=== PATIENT | male | born 1960 | race Caucasian/White ===

== ENCOUNTER 2021-02-09 17:18 | Observation (INO) | payer OTHER, SELFPAY ==
--- NOTE | ~2021-02-09 | XR_ITS ---
EXAMINATION: XR abdomen/kub 1V EXAM DATE: 02/11/2021 08:38 INDICATION: Right kidney stone position. TECHNIQUE: Frontal projection(s) of the abdomen for interpretation. Correlation is made to CT abdomen pelvis 02/09/2021. FINDINGS: There is a right-sided double-J ureteral stent. There is large stone at the right UPJ, jus t above the L4 transverse process level. This finding has been indicated, marked on the examination f or review, clinical correlation. Smaller bilateral nephrolithiasis. Small amount of bowel gas. There is no organomegaly. There are mild bony degenerative changes. IMPRESSION: Right UPJ stone, bilateral nephrolithiasis identified Reviewed, dictated and finalized at location A.
--- NOTE | ~2021-02-09 | XR_ITS ---
EXAMINATION: XR retrograde pyelo w/stent RT EXAM DATE: 02/10/2021 13:08 INDICATION: Right-sided retrograde, stent placement. Obstructive nephropathy. TECHNIQUE: Fluoroscopy used during XR retrograde pyelo w/stent RT performed by Dr. Romulo Lewis MD. Total fluoroscopic time of 24 seconds. A total of 62 obtained for the exam. The DAP for this procedure was 940 radcm2. Cine run(s) available for review. FINDINGS: Right ureter was cannulated, injected. There is mild to moderate hydronephrosis. A double- J ureteral stent was placed. Correlate with procedure note. IMPRESSION: Mild to moderate right hydronephrosis. Stent in position. Reviewed, dictated and finalized at location A.
--- NOTE | ~2021-02-09 | XR_ITS ---
XR chest 1V portable 02/11/2021 08:38 Indication: Groundglass opacities on CT examination. Procedure: AP portable chest Comparison: CT dated 02/09/2021 Findings: There are patchy left mid and lower lung zone infiltrates, compatible with pneumonia. No si gnificant effusion. Heart size normal. No pneumothorax. No acute osseous abnormality. Impression: 1: Patchy left-sided infiltrates, consistent with pneumonia. Reviewed, dictated and finalized at location B. Impression: 1: Patchy left-sided infiltrates, consistent with pneumonia.
--- NOTE | ~2021-02-09 | CT_ITS ---
EXAMINATION: CT abdomen pelvis w con EXAM DATE: 02/09/2021 19:16 INDICATION: Abdominal pain, nausea, and diarrhea. Rule out small bowel obstruction. TECHNIQUE: Spiral CT of the abdomen and pelvis was performed following intravenous injection of 100 m L Omnipaque 350. Axial, coronal and sagittal images were reviewed. The dose-length product (DLP) fo r this examination was 1446.06 mGy-cm. The exposure was tailored according to patient size (auto mA exposure control), and iterative reconstruction (ASIR) was used as additional dose reduction techniqu e. There is no prior study for comparison. FINDINGS: Evaluation of the lung bases demonstrates at least 5 small regions of peripheral groundglas s opacity, nonspecific pneumonitis but possible COVID pneumonia. There are 2 right basilar 4 mm nodul es, several punctate smaller left basilar nodules, likely postinfectious. There is a 1 cm stone in the right ureteropelvic junction with mild hydronephrosis, and a delayed nep hrogram. There is ill-defined 2 cm right kidney superior pole hypodensity, which could be hemorrhagic cyst could also be mass or pyelonephritis. Several other nonobstructing bilateral calyceal stones. The liver, spleen, adrenal glands and pancreas are unremarkable. Gallbladder is unremarkable. No bi liary obstruction. The prostate is unremarkable. The bladder is unremarkable. There is no retroper itoneal or pelvic lymphadenopathy. Small umbilical fat-containing hernia. The appendix is normal. The stomach and small bowel are unremarkable. There is expected amount of c olonic stool. No free intraperitoneal gas. The heart is normal in size. There are no pericardial or pleural effusions. There are no osteoblastic or osteolytic lesions identified. IMPRESSION: 1. Possible early or mild COVID pneumonia. 2. Right ureteropelvic junction 10 mm stone, mild hydronephrosis. Delayed nephrogram. 3. Right renal 2 cm hypodensity, indeterminate for cancer or infection. Recommend correlation with u rinalysis and one-month follow-up CT or MRI without and with contrast for further evaluation. 4. Bilateral nephrolithiasis. Urologist consultants would appreciate KUB as baseline for follow-up, treatment planning. Reviewed, dictated and finalized at location A. IMPRESSION: 1. Possible early or mild COVID pneumonia. 2. Right ureteropelvic junction 10 mm stone, mild hydronephrosis. Delayed neph rogram. 3. Right renal 2 cm hypodensity, indeterminate for cancer or infection. Recomm end correlation with urinalysis and one-month follow-up CT or MRI without and w ith contrast for further evaluation. 4. Bilateral nephrolithiasis. Urologist consultants would appreciate KUB as baseline for follow-up, treatment planning.
[2021-02-09 17:25] VITALS: BP 159/96; PULSE 97; RESP 22; TEMP 36.1; O2SAT 97
[2021-02-09 18:02] LABS: Basophils Percent Auto 0.4 % (0.2-1.2); Eosinophils Percent Auto 0.1 % (0-4.4); Hematocrit 43.5 % (42.0-52.0); Hemoglobin 15.3 g/dL (14.0-18.0); Immature Granulocyte Absolute 0.05 K/mm3 (0.00-0.031); Immature Granulocyte Percent A 0.5 % (0-0.5); Lymphocytes Absolute Auto 1.36 K/mm3 (0.9-3.2); Lymphocytes Percent Auto 13.7 % (18.3-44.2); Mean Corpuscular HGB Conc 35.2 g/dl (32-36); Mean Corpuscular Hemoglobin 29.4 pg (26-34); Mean Corpuscular Volume 83.7 fl (80-100); Mean Platelet Volume 8.9 fl (7.4-10.4); Monocytes Absolute Auto 1.7 K/mm3 (0.1-0.6); Monocytes Percent Auto 16.6 % (2.6-8.5); Neutrophils Absolute Auto 6.9 K/mm3 (1.3-6.7); Neutrophils Percent Auto 68.7 % (45.5-73.1); Platelet Count Result 228 k/mm3 (150-375); Red Cell Distribution Width 11.7 % (11.5-14.5)
[2021-02-09 18:08] LABS: Add Urine Microscopic? YES; Amorphous Sediment Urine Few; Appearance Urine Cloudy (Clear); Bacteria Urine 1+ /hpf; Bilirubin Urine Negative (Negative); Blood Urine 1+ (Negative); Color Urine Yellow (Yellow); Glucose Urine UA Negative (Negative); Ketones Urine Negative (Negative); Leukocyte Esterase Ur 3+ LEU/UL (Negative); Nitrate Urine Negative (Negative); Protein Urine 1+ mg/dL (Negative); Specific Grav Ur 1.009 (1.001-1.035); Squamous Epithelial Cell Urine Rare /hpf (Few); WBC Urine >75 /hpf
[2021-02-09 18:12] LABS: Alanine Aminotransferase 24 U/L (4-50); Albumin Level 3.8 g/dL (3.5-5.1); Alkaline Phosphatase 65 U/L (38-126); Anion Gap 6 mmol/L (8-16); Aspartate Amino Transferase 31 U/L (17-59); Bilirubin,Total 1.7 mg/dL (0.2-1.3); Blood Urea Nitrogen 11 mg/dL (9-20); Calcium 8.3 mg/dL (8.4-10.2); Carbon Dioxide 29 mmol/L (22-30); Chloride 99 mmol/L (98-107); Estimated CRCL calculation 84 ml/min; Estimated Glomerular Filt Rate > 60; Glucose 139 mg/dL (75-110); Lipase 47 U/L (23-300); Potassium 3.4 mmol/L (3.4-5.0); Sodium 134 mmol/L (137-145)
--- NOTE | 2021-02-09 18:38 | ED.GENADULT ---
HPI - General Adult General Chief complaint: Abdominal Pain Stated complaint: abd pain Time Seen by Provider: 02/09/21 17:39 Source: patient Mode of arrival: ambulatory Limitations: no limitations History of Present Illness HPI narrative: Patient presents for evaluation of abdominal pain for last 3 days. He states the pain is in the bilateral lower quadrants, described as a pressure, currently rated 8 out of 10 in severity. Pain is fairly constant. He has associated nausea without vomiting. He has also experienced diarrhea, with four reported episodes today. No blood or mucous in the stool. No hx of abdominal surgeries. States he had a colonoscopy a few years ago that he believes was normal. He seldom consumes ETOH. Denies tobacco use and illicit drug use. He has not experienced any fever or chills. Related Data Allergies Allergy/AdvReac Type Severity Reaction Status Date / Time No Known Allergies Allergy Verified 02/09/21 17:26 Review of Systems Review of Systems: Narrative: CONSTITUTIONAL: Denies fever, chills, or sweats. EYES: Denies visual changes, redness, or discharge. ENT: Denies rhinorrhea, congestion, sore throat, or otalgia. CARDIOVASCULAR: Denies chest pain, palpitations, or edema. RESPIRATORY: Denies cough or dyspnea. GASTROINTESTINAL: Abdominal pain, nausea and diarrhea. Denies vomiting GENITOURINARY: Denies dysuria or hematuria. SKIN: Denies rash or itching. MUSCULOSKELETAL: Denies back pain, joint pain, or myalgia. NEUROLOGIC: Denies headache, numbness, dizziness, or weakness. PSYCHIATRIC: Denies anxiety or depression. [facility] Past Medical History Medical History (Updated 02/09/21 @ 20:54 by EARNESTINE Dorado, ) Hyperlipidemia Hypertension Surgical History Surgical History No pertinent past surgical history Family History Family History Mother Diabetes mellitus Father Diabetes mellitus Social History Social History Smoking status: Never smoker Alcohol intake: current Alcohol use details: seldom Substance use: never Living arrangements: alone Gender identity (if verbalized by the patient): Male Spiritual care concerns: No Exam Narrative: Exam Narrative: GENERAL: Well-appearing, well-nourished, and in no acute distress. HEAD: Normocephalic, atraumatic. EYES: PERRLA and EOMI. ENT: Nares clear, no rhinorrhea or epistaxis. Mucous membranes moist. Oropharynx without tonsillar hypertrophy exudate or other lesions. Bilateral TMs pearly cruz nonbulging NECK: Supple. No adenopathy or masses. No carotid bruits or JVD CHEST: Clear to auscultation. No respiratory distress. No wheezes rales or rhonchi HEART: Regular rate and rhythm. No murmur heard. Normal peripheral pulses. ABDOMEN: Soft, protuberant, with tenderness in BLQ without rebound or guarding EXTREMITIES: Normal range of motion. No edema. SKIN: Warm, dry, no rash. NEURO: No focal deficits. Alert and oriented x3. PSYCH: Normal mood and affect. Course Course Emergency Course: This is a 60-year-old male that presented with 3-day history of abdominal pain, nausea, and diarrhea. Initial consideration was for small bowel obstruction. However CT abdomen pelvis consistent with pneumonia questionably related to Covid, 10 mm stone in right UVJ, nephrolithiasis, right renal 2 cm hypodensity, and bilateral nephrolithiasis. He was given morphine and zofran in the ER 2039 I reviewed all diagnostics with pt, including recommendations for admission. He is agreeable to plan of care. 2049 I discussed all relevant case with urologist, Dr. Lewis, who agreed to consult on case. Recommends admitting to hospitalist service. 2109 I discussed all relevant facts of case with Dr Garcia, who agrees to admit pt to her service. Pt started on Rocephin in ER.
[2021-02-09] MEDS: ONDANSETRON INJ 4 MG/2 ML VIAL IV PUSH (19:34)
[2021-02-09] MEDS: MORPHINE SULFATE (*CRX) 2 MG/ML INJ IV PUSH (19:35)
--- NOTE | 2021-02-09 19:35 | PC.NURSE ---
Assumed care of pt. report from GIOVANNI Valencia
[2021-02-09 19:54] VITALS: BP 119/96; PULSE 82; RESP 19; O2SAT 94
[2021-02-09 21:00] VITALS: BP 126/80; PULSE 85; RESP 19; O2SAT 96
[2021-02-09] MEDS: SODIUM CHLORIDE 0.9% IV 1,000 ML 150 ML IV CONT (21:15)
[2021-02-09] MEDS: POTASSIUM CHLORIDE 20 MEQ TABLET PO (21:30)
[2021-02-09 21:53] VITALS: BP 133/87; PULSE 78; RESP 19; O2SAT 99
[2021-02-09 22:00] VITALS: BP 107/90; PULSE 87; RESP 18; TEMP 37.3; O2SAT 97; BMI 39.8
--- NOTE | 2021-02-09 22:01 | ADMGEN ---
This patient, Chilo Mcintyre, was admitted to 3 [facility] Surg Room 322-01. Patient/family oriented to hospital policies and general routines including ID bracelet, bed and alarms, visiting hours, pain management, procedures, bathroom and other care routines, personal items, smoking policy, room service/diet, and visiting hours. Information on how to activate the Rapid Response Team has been discussed. Patient/Family are encouraged to report perceived risks to care and to ask questions if they do not understand what they are told or what they should do.
--- NOTE | 2021-02-09 23:57 | PM.IMHP ---
H&P: HPI History of Present Illness Date/Time: 02/09/21 23:57 Chief Complaint: Abdominal pain, nausea and diarrhea Narrative: 60-year-old male with a past medical history of kidney stones, hypertension and hyperlipidemia who presented to the ER for evaluation of nausea, diarrhea and abdominal pain for 3 days. He reports that about 5 days ago he began having some right flank pain. After a day or so the pain went away. He then began having more lower abdominal pain that was generalized. It was accompanied by up to 6 loose stools a day. His stools were brown in color. He denies any hematochezia or melena. He reported feeling severely nauseous but not having any vomiting. He had not been able to eat for the last 3 days due to his severe nausea. After he received medications in the ER his symptoms had improved and he was able to eat a sandwich when he arrived to the medical floor. Reports that he is a ?hot blooded person? but has not noticed any real fevers. He has not measured his temperature. He denies any chest pain. But over the last 2 days he has noticed a mild cough with some associated shortness of breath. He works at a [email or web address] and has exposure to the public. He denies any known COVID exposures. He denies any dysuria or hematuria. He states he does not pay attention to whether not his urine has changed in color or if is urine has been foul smelling. He reports that his last kidney stone was approximately 3 years ago. The 2 times that he has had kidney stones in the past he has required cystoscopy with ureteral stent placement. A cystoscopy his blood pressures dropped. I suspect that this was likely due to and infected kidney stone at that time. He does admit to drinking a lot of Dr. Shilpa. He does have a history of hypertension but it looks like he has not had his antihypertensives refilled since February of 2020. He denies any headache, fatigue, or myalgias. He has multiple missing teeth in remainder of his teeth are in poor condition. He denies any current dental pain. Review of Systems Review of Systems: Narrative: 12 systems were reviewed with pertinent positives and negatives per HPI. Except as documented in the HPI, all other systems were reviewed and are negative. [facility] Past Medical History Medical History (Updated 02/10/21 @ 00:38 by Geena Garcia DO) Bilateral kidney stones Hyperlipidemia Hypertension Surgical History Surgical History (Updated 02/10/21 @ 00:38 by Geena Garcia DO) History of bilateral inguinal hernia repair S/P cystoscopy with ureteral stent placement (~2018) X2 Status post open reduction with internal fixation of fracture (~2018) Left tib-fib fracture Family History Family History Mother , Around age 75 Diabetes mellitus Thyroid disease Father , Around age 75 Diabetes mellitus COPD (chronic obstructive pulmonary disease) Social History Social History (Updated 02/10/21 @ 00:46 by Geena Garcia DO) Social History: The patient and his her currently . He still goes over to their house and watches his 15-year-old daughter. He also has 2 other biologic children ages 40 and 32. He also has a stepson who was 24. He is employed at [employer]. He has had intermittent tobacco use since he was a teenager. He reports that he has never smoked more than a half a pack of cigarettes a day. He states that he is currently quit smoking but is vague as to when he last smoked. He drinks 3-4 alcoholic beverages a week. Smoking status: Former smoker Alcohol intake: current Drinks per week: 2 Alcohol use details: He drinks 3-4 alcoholic beverages a week but will go intervals without drinking for a month or so. Substance use: never Living arrangements: alone Gender identity (if verbalized by the patient): Male Spiritual care concerns: No Meds Home
[2021-02-10] VITALS (14 sets, daily range): BP systolic 113–148; BP diastolic 66–85; PULSE 73–92; RESP 16–20; TEMP 36.3–37.3; O2SAT 93–99
[2021-02-10 04:40] LABS: Influenza Control Positive
--- NOTE | 2021-02-10 08:54 | WPDURCON ---
Assessment and Plan Assessment and plan (1) Suspected COVID-19 virus infection: Code(s): Z20.822 - Contact with and (suspected) exposure to COVID-19 Status: Acute (2) Hydronephrosis with urinary obstruction due to renal calculus: Code(s): N13.2 - Hydronephrosis with renal and ureteral calculous obstruction Status: Acute (3) Renal lesion: Code(s): N28.9 - Disorder of kidney and ureter, unspecified Status: Acute (4) Urinary tract infection: Qualifiers: Hematuria presence: without hematuria Urinary tract infection type: acute cystitis Qualified Code(s): N30.00 - Acute cystitis without hematuria Code(s): N39.0 - Urinary tract infection, site not specified Status: Acute Assessment and Plan: Cystoscopy with right ureteral stent placement today. In the future he will need CT scan the abdomen pelvis with and without contrast to further evaluate the indeterminate lesion in his right kidney. ESWL to right kidney stones down the road, once his urinary tract infection has been treated. Urology Consult Note HPI Date Seen: 02/10/21 Requesting Physician: Meseret Platt PA-C Primary Care Provider: [employer]RESPONDENCE RENEW CLERK PHYSICIAN Consult Narrative Narrative: Chilo Mcintyre is a 60 year old male With remote history of urolithiasis that required lithotripsy more than 10 years ago. He presents to the ER last night with a 3 day history of intermittent abdominal pain with nausea. He denies vomiting fevers chills or gross hematuria. CT scan of the abdomen pelvis without contrast reveals an obstructing 10 mm right UPJ stone with some smaller nonobstructing right kidney stones. Additionally, his indeterminate 2 cm hypodense lesion in his right kidney. Lastly, he has findings of possible early pulmonary COVID infection. Review of Systems Cardiovascular: Cardiovascular: Denies chest pain, Denies lightheadedness, Denies palpitations and Denies dyspnea Respiratory: Respiratory: Denies dyspnea Gastrointestinal: Gastrointestinal: Denies diarrhea, Denies nausea and Denies vomiting Genitourinary: Genitourinary: Denies hematuria and Denies dysuria Endocrine: Endocrine: Denies palpitations PMFSH Past Medical History Medical History Bilateral kidney stones Hyperlipidemia Hypertension Surgical History Surgical History History of bilateral inguinal hernia repair S/P cystoscopy with ureteral stent placement (~2019) X2 Status post open reduction with internal fixation of fracture (~2018) Left tib-fib fracture Family History Family History Mother , Around age 75 Diabetes mellitus Thyroid disease Father , Around age 75 Diabetes mellitus COPD (chronic obstructive pulmonary disease) Social History Social History Social History: The patient and his her currently . He still goes over to their house and watches his 15-year-old daughter. He also has 2 other biologic children ages 40 and 32. He also has a stepson who was 24. He is employed at [employer]. He has had intermittent tobacco use since he was a teenager. He reports that he has never smoked more than a half a pack of cigarettes a day. He states that he is currently quit smoking but is vague as to when he last smoked. He drinks 3-4 alcoholic beverages a week. Smoking status: Former smoker Alcohol intake: current Drinks per week: 2 Alcohol use details: He drinks 3-4 alcoholic beverages a week but will go intervals without drinking for a month or so. Substance use: never Living arrangements: alone Gender identity (if verbalized by the patient): Male Spiritual care concerns: No Meds Home Medications and Allergies Home Medications
--- NOTE | 2021-02-10 09:08 | WPDHPUPDATE1 ---
History and Physical Update Update Date/Time: 02/10/21 09:08 History and Physical has been reviewed, including an updated exam of the patient. There are NO changes in the patient's condition. Risks, benefits, and alternatives have been discussed and questions answered. Patient agrees to proceed with procedure.
[2021-02-10 09:25] LABS: Basophils Percent Auto 0.4 % (0.2-1.2); Eosinophils Percent Auto 0.1 % (0-4.4); Immature Granulocyte Absolute 0.04 K/mm3 (0.00-0.031); Immature Granulocyte Percent A 0.4 % (0-0.5); Lymphocytes Absolute Auto 1.76 K/mm3 (0.9-3.2); Lymphocytes Percent Auto 19.2 % (18.3-44.2); Mean Corpuscular HGB Conc 34.9 g/dl (32-36); Mean Corpuscular Hemoglobin 29.9 pg (26-34); Mean Corpuscular Volume 85.7 fl (80-100); Monocytes Absolute Auto 1.3 K/mm3 (0.1-0.6); Monocytes Percent Auto 14.6 % (2.6-8.5); Neutrophils Percent Auto 65.3 % (45.5-73.1); Platelet Count Result 228 k/mm3 (150-375); Red Blood Count 5.02 M/mm3 (4.6-6.20); Red Cell Distribution Width 11.9 % (11.5-14.5); White Blood Count 9.2 K/mm3 (4.5-10.0)
[2021-02-10 09:42] LABS: Alanine Aminotransferase 22 U/L (4-50); Albumin Level 3.6 g/dL (3.5-5.1); Alkaline Phosphatase 66 U/L (38-126); Anion Gap 6 mmol/L (8-16); Aspartate Amino Transferase 25 U/L (17-59); Bilirubin,Total 1.3 mg/dL (0.2-1.3); Blood Urea Nitrogen 11 mg/dL (9-20); Calcium 8.2 mg/dL (8.4-10.2); Carbon Dioxide 29 mmol/L (22-30); Chloride 103 mmol/L (98-107); Estimated CRCL calculation 69 ml/min; Estimated Glomerular Filt Rate 57; Glucose 125 mg/dL (75-110); Magnesium 2.1 mg/dL (1.6-2.3); Potassium 3.3 mmol/L (3.4-5.0); Sodium 138 mmol/L (137-145)
--- NOTE | 2021-02-10 11:42 | WPDANESEPPF ---
Anes - Initial Pre Proc Eval Procedure: Operation Date: 02/10/21 10:00 Proposed Procedures p Cysto, RPG, Stone Ext, Stent Placement(Right) - Romulo Lewis MD Date/Time: 02/10/21 11:42 Surgeon: Meseret Platt PA-C Pre Op Diagnosis: kidney stone, uti, cap Patient Data Age: 60 Gender: M Height: 1.73 m Weight: 118.8 kg Last Vital Signs Temp 36.8 C 02/10/21 11:41 Pulse 80 02/10/21 11:41 Resp 18 02/10/21 11:41 BP 134/85 02/10/21 11:41 Pulse Ox 97 02/10/21 11:41 Allergies Allergy/AdvReac Type Severity Reaction Status Date / Time No Known Allergies Allergy Verified 02/09/21 17:26 Home Medications Medication Instructions Recorded Confirmed Type No Home Medications 02/09/21 02/09/21 History Laboratory Tests 02/09/21 02/09/21 02/09/21 17:48 17:48 17:48 WBC 10.0 K/mm3 K/mm3 (4.5-10.0) RBC 5.20 M/mm3 M/mm3 (4.6-6.20) Hgb 15.3 g/dL g/dL (14.0-18.0) Hct 43.5 % % (42.0-52.0) MCV 83.7 fl fl (80-100) MCH 29.4 pg pg (26-34) MCHC 35.2 g/dl g/dl (32-36) RDW 11.7 % % (11.5-14.5) Plt Count 228 k/mm3 k/mm3 (150-375) MPV 8.9 fl fl (7.4-10.4) Immature Gran % (Auto) 0.5 % % (0-0.5) Neut % (Auto) 68.7 % % (45.5-73.1) Lymph % (Auto) 13.7 % L % (18.3-44.2) [place] % (Auto) 16.6 % H % (2.6-8.5) Eos % (Auto) 0.1 % % (0-4.4) Baso % (Auto) 0.4 % % (0.2-1.2) Lymph # (Auto) 1.36 K/mm3 K/mm3 (0.9-3.2) [place] # (Auto) 1.7 K/mm3 H K/mm3 (0.1-0.6) Eos # (Auto) 0.0 K/mm3 K/mm3 (0-0.3) Baso # (Auto) 0.0 K/mm3 K/mm3 (0.0-0.1) Abs Immat Gran (auto) 0.05 K/mm3 H K/mm3 (0.00-0.031) Absolute Neuts (auto) 6.9 K/mm3 H K/mm3 (1.3-6.7) Absolute Nucleated RBC 0.0 K/mm3 K/mm3 (0.0-0.012) Nucleated RBC % 0.0 % % (0.0-0.2) Sodium 134 mmol/L L mmol/L (137-145) Potassium 3.4 mmol/L mmol/L (3.4-5.0) Chloride 99 mmol/L mmol/L (98-107) Carbon Dioxide 29 mmol/L mmol/L (22-30) Anion Gap 6 mmol/L L mmol/L (8-16) BUN 11 mg/dL mg/dL (9-20) Creatinine 1.10 mg/dL mg/dL (0.7-1.3) Estim Creat Clear Calc 84 ml/min ml/min Estimated GFR > 60 (59 - ) Glucose 139 mg/dL H mg/dL (75-110) Calcium 8.3 mg/dL L mg/dL (8.4-10.2) Magnesium Total Bilirubin 1.7 mg/dL H mg/dL (0.2-1.3) AST 31 U/L U/L (17-59) ALT 24 U/L U/L (4-50) Alkaline Phosphatase 65 U/L U/L (38-126) Total Protein 8.0 g/dL g/dL (6.3-8.2) Albumin 3.8 g/dL g/dL (3.5-5.1) Lipase 47 U/L U/L (23-300) Urine Color Yellow (Yellow) Urine Appearance Cloudy H (Clear) Urine pH 7.0 (5.0-9.0) Ur Specific [place] 1.009 (1.001-1.035) Urine Protein 1+ mg/dL H mg/dL (Negative) Urine Glucose (UA) Negative mg/dL mg/dL (Negative) Urine Ketones Negative mg/dL mg/dL (Negative) Ur Blood (Man) 1+ H (Negative) Urine Nitrate Negative (Negative) Urine Bilirubin Negative (Negative) Urine Urobilinogen 2.0 mg/dL H mg/dL (<2.0) Leukocyte Esterase Rfl 3+ MARTI/UL H MARTI/UL (Negative) Urine RBC 11-20 /hpf H /hpf (0-2) Urine WBC >75 /hpf H /hpf Ur Squamous Epith Cells Rare /hpf /hpf (Few) Amorphous Sediment Few H (None) Urine Bacteria 1+ /hpf H /hpf Influenza Types A,B Ag SARS-CoV-2 RNA (RT-PCR) 02/09/21 02/10/21 02/10/21 21:31 04:17 09:05 WBC 9.2 K/mm3 K/mm3 (4.5-10.0) RBC 5.02 M/mm3 M/mm3 (4.6-6.20) Hgb 15.0 g/dL g/dL (14.0-18.0) Hct
[2021-02-10] MEDS: LACTATED RINGERS 1,000 ML 30 ML IV CONT (12:30)
[2021-02-10] MEDS: LIDOCAINE HCL 2% GEL UROJET 10 ML PKG MUCOUS MEM (12:41)
--- NOTE | 2021-02-10 12:50 | PM.PROC ---
Procedure Note - Detailed Date of procedure: 02/10/21 Pre-op diagnosis: kidney stone, uti Post-op diagnosis: same Procedure performed: Cystoscopy, right retrograde pyelography and right ureteral stent placement Description of procedure: Patient is brought the op suite where he has prepped draped in routine sterile fashion while in a dorsal lithotomy position after the uneventful induction of a general LMA anesthetic. Cystoscopy is undertaken with this 19 F rigid cystoscope. There is no significant urethral strictures. Prostate shows minimal lateral lobe hyperplasia with a somewhat high median bar. Bladder is slightly trabeculated but without bladder neoplasm. He has a single orthotopic ureteral orifice. Eight F bulb tip catheter was used to obtain a right retrograde pyelogram. A large stone in distal right UPJ to be visualized as a filling defect. A 0.035 in glidewire was advanced into the right renal pelvis and a 4.8 F variable length stent is position with the proximal coil above the stone and the distal coil in the bladder. Scopes and wires removed. The patient tolerated the procedure well was taken recovery room in good condition Anesthesia: GLMA Surgeon: Romulo Lewis MD Estimated blood loss (mL): 0 Packing: No Pathology: none sent Complications: No immediate complications Condition: stable Disposition: PACU
--- NOTE | 2021-02-10 14:12 | PC.NURSE ---
Returned from OR per bed at 1350
--- NOTE | 2021-02-10 14:51 | PM.IMPN ---
Progress Note: A&P Assessment and Plan (1) Hydronephrosis with urinary obstruction due to renal calculus: Code(s): N13.2 - Hydronephrosis with renal and ureteral calculous obstruction Status: Acute Assessment and Plan: He presented with right flank pain, nausea, and diarrhea. CT abd/pelvis demonstrated obstructing right UVJ stone with associated hydronephrosis. He underwent cystoscopy with right ureteral stent placement by Dr. Lewis today (02/10/21). Urology following with management deferred to urology Continue IV fluids He will need outpatient ESWL outpatient per urology once infection is adequately treated (2) Pyelonephritis: Code(s): N12 - Tubulo-interstitial nephritis, not specified as acute or chronic Status: Acute Assessment and Plan: Urinalysis grossly abnormal in the setting of obstructing stone. WBC normal and pt is afebrile. Continue empiric ceftriaxone Urine and blood cultures ordered and pending. Tailor antibiotics to culture results. (3) Suspected COVID-19 virus infection: Code(s): Z20.822 - Contact with and (suspected) exposure to COVID-19 Status: Acute Assessment and Plan: CT abd/pelvis demonstrated ground glass opacities in the lung bases. He notes cough for 3 days and some mild dyspnea. He is not currently hypoxic. SARS-CoV-2 test ordered and pending. No specific COVID-19 treatment indicated at this time as he is not hypoxic/results pending. Continue isolation precautions Check CXR (4) Renal lesion: Code(s): N28.9 - Disorder of kidney and ureter, unspecified Status: Acute Assessment and Plan: Right renal 2 cm hypodensity, indeterminate for cancer or infection, on CT abd/pelvis. This is likely due to infection given clinical picture. Urology is following and he will require follow-up CT or MRI w and wo contrast in 1 month to further evaluate the lesion and ensure resolution (5) Morbid obesity: Code(s): E66.01 - Morbid (severe) obesity due to excess calories Status: Acute Assessment and Plan: He needs to loose weight with lifestyle interventions including diet and exercise. This will be encouraged. (6) Hypertension: Code(s): I10 - Essential (primary) hypertension Status: Acute Assessment and Plan: He was previously on metoprolol and lisinopril but he has not followed with his doctor to get refills in at least 1 month. He has a few readings in 140s to 150. BP well-controlled at this time and will not initiate antihypertensives at this time due to just receiving anesthesia. Monitor blood pressure and may consider resuming his lisinopril and metoprolol after review of readings (7) Hyperlipidemia: Code(s): E78.5 - Hyperlipidemia, unspecified Status: Acute Assessment and Plan: Not on statin prior to admission. Check lipid panel Subjective Date/time seen: 02/10/21 14:51 Mr. Mcintyre is a very pleasant 60 y.o. male with PMH significant for morbid obesity, nephrolithiasis requiring stent placement in the past, hypertension, and hyperlipidemia (not on any medications prior to admission) who is seen in follow-up for obstructing right ureteropelvic junction stone with mild hydronephrosis s/p cystoscopy with right ureteral stent placement and UTI. He is also a PUI for COVID-[address] abd/pelvis findings demonstrating ground glass opacities suspicious for COVID-19 pneumonia. He is doing well at the time of my visit. His only complaint is hunger since he was NPO for cystoscopy. He reports no abdominal, flank or back pain at this time. He notes some dysuria following cystoscopy. He denies faith hematuria. He denies nausea and vomiting. He reports no further loose stools today. He notes some mild non-productive cough. He notes no significant dyspnea at this time. He denies chest pain. He denies headache, dizziness, and lightheadedness. Exam Narrat
[2021-02-10] MEDS: POTASSIUM CHLORIDE 20 MEQ TABLET 40 MEQ PO (15:23)
[2021-02-10 15:25] LABS: SARS-CoV-2 RNA PCR Positive
[2021-02-10] MEDS: ENOXAPARIN 40 MG/0.4 ML SYRINGE SUB-Q (20:52)
[2021-02-11] VITALS: BP 120/71; PULSE 66; RESP 20; TEMP 36.1; O2SAT 94
[2021-02-11 04:00] VITALS: BP 139/86; PULSE 72; RESP 20; TEMP 36.3; O2SAT 97
[2021-02-11 06:20] LABS: Alanine Aminotransferase 23 U/L (4-50); Albumin Level 3.7 g/dL (3.5-5.1); Alkaline Phosphatase 61 U/L (38-126); Anion Gap 5 mmol/L (8-16); Aspartate Amino Transferase 24 U/L (17-59); Bilirubin,Total 0.7 mg/dL (0.2-1.3); Blood Urea Nitrogen 16 mg/dL (9-20); Calcium 8.6 mg/dL (8.4-10.2); Carbon Dioxide 30 mmol/L (22-30); Chloride 104 mmol/L (98-107); Creatine Kinase 213 U/L (55-170); Estimated CRCL calculation 89 ml/min; Estimated Glomerular Filt Rate > 60; Glucose 153 mg/dL (75-110); Lactate Dehydrogenase 463 U/L (313-618); Potassium 3.8 mmol/L (3.4-5.0); Sodium 139 mmol/L (137-145)
[2021-02-11 06:30] LABS: Basophils Percent Auto 0.2 % (0.2-1.2); Hematocrit 44.4 % (42.0-52.0); Hemoglobin 15.2 g/dL (14.0-18.0); Immature Granulocyte Absolute 0.06 K/mm3 (0.00-0.031); Immature Granulocyte Percent A 0.6 % (0-0.5); Lymphocytes Absolute Auto 1.07 K/mm3 (0.9-3.2); Mean Corpuscular HGB Conc 34.2 g/dl (32-36); Mean Corpuscular Hemoglobin 29.5 pg (26-34); Mean Corpuscular Volume 86.2 fl (80-100); Mean Platelet Volume 9.4 fl (7.4-10.4); Monocytes Absolute Auto 1.1 K/mm3 (0.1-0.6); Monocytes Percent Auto 10.5 % (2.6-8.5); Neutrophils Absolute Auto 8.4 K/mm3 (1.3-6.7); Neutrophils Percent Auto 78.7 % (45.5-73.1); Platelet Count Result 275 k/mm3 (150-375); Red Blood Count 5.15 M/mm3 (4.6-6.20); Red Cell Distribution Width 11.7 % (11.5-14.5); White Blood Count 10.7 K/mm3 (4.5-10.0)
--- NOTE | 2021-02-11 06:46 | WPDUROPN2 ---
Progress Note: A&P Assessment and Plan (1) Suspected COVID-19 virus infection: Code(s): Z20.822 - Contact with and (suspected) exposure to COVID-19 Status: Acute (2) Hydronephrosis with urinary obstruction due to renal calculus: Code(s): N13.2 - Hydronephrosis with renal and ureteral calculous obstruction Status: Acute (3) Renal lesion: Code(s): N28.9 - Disorder of kidney and ureter, unspecified Status: Acute (4) Urinary tract infection: Qualifiers: Hematuria presence: without hematuria Urinary tract infection type: acute cystitis Qualified Code(s): N30.00 - Acute cystitis without hematuria Code(s): N39.0 - Urinary tract infection, site not specified Status: Acute Assessment and Plan: Cystoscopy with right ureteral stent placement today. In the future he will need CT scan the abdomen pelvis with and without contrast to further evaluate the indeterminate lesion in his right kidney. ESWL to right kidney stones down the road, once his urinary tract infection has been treated. 02/11/21 Tolerating stent Urine cx.: proteus / blood cx.: neg. so far. Tailored abx. once all complete. Covid: positive Will get KUB to check stone position follwoing stent placement Subjective Subjective Date/Time Seen: 02/11/21 06:46 Comfortable, tolerating stent Review of Systems Cardiovascular: Cardiovascular: Denies chest pain, Denies lightheadedness, Denies palpitations and Denies dyspnea Respiratory: Respiratory: Denies dyspnea Gastrointestinal: Gastrointestinal: Denies diarrhea, Denies nausea and Denies vomiting Genitourinary: Genitourinary: Denies hematuria and Denies dysuria Endocrine: Endocrine: Denies palpitations Exam Const: General: no acute distress Resp: Effort & Inspection: normal respiratory effort GI: Inspection: non-distended GI Palp: No abdominal tenderness and No Guarding due to palpation present (GI) Auscultation: normal bowel sounds Objective Data Vital Signs Vital Signs: Vital Signs - 24 hr 02/10/21 07:58 02/10/21 08:46 02/10/21 11:41 Temperature 98.2 F 98.2 F Pulse Rate 83 80 Respiratory Rate 18 18 Blood Pressure 129/83 134/85 Pulse Oximetry 97 97 97 02/10/21 12:53 02/10/21 13:05 02/10/21 13:20 Temperature 99 F Pulse Rate 83 82 80 Respiratory Rate 20 16 16 Blood Pressure 127/76 130/83 135/73 Pulse Oximetry 96 99 97 02/10/21 13:35 02/10/21 13:50 02/10/21 14:05 Temperature 97.9 F 97.9 F Pulse Rate 80 83 81 Respiratory Rate 17 18 18 Blood Pressure 129/74 113/76 127/73 Pulse Oximetry 94 95 96 02/10/21 14:35 02/10/21 16:00 02/10/21 20:00 Temperature 97.9 F 98.0 F 97.4 F L Pulse Rate 82 89 73 Respiratory Rate 16 18 20 Blood Pressure 120/66 148/82 H 119/76 Pulse Oximetry 97 98 95 02/11/21 00:00 02/11/21 04:00 Temperature 97 F L 97.3 F L Pulse Rate 66 72 Respiratory Rate 20 20 Blood Pressure 120/71 139/86 Pulse Oximetry 94 97 Intake/Output Intake/Output: Intake & Output 02/08/21 02/09/21 02/10/21 02/11/21 23:59 23:59 23:59 23:59 Intake Total 50 2570 200 Output Total 1300 1600 Balance 50 1270 -1400 Meds/Results Medications: Active Medications Generic Name Dose Route Start Last Admin Trade Name Freq PRN Reason Stop Dose Admin Enoxaparin Sodium 40 mg 02/10/21 21:00 02/10/21 20:52 Enoxaparin 40 Mg/0.4 Ml Syringe SUB-Q 40 mg HS DIANNA Administration Ceftriaxone Sodium/Dextrose 1 gm in 50 mls @ 100 mls/hr 02/10/21 21:00 02/10/21 22:51 Rocephin 1 Gm/D5w 50 Ml IVPB Infused Q24H DIANNA Infusion Morphine Sulfate 2 mg 02/09/21 21:05 Morphine Sulfate (*Crx) 2 Mg/Ml Inj IV PUSH Q2H PRN Pain Rated 7-10 Ondansetron HCl 4 mg 02/09/21 21:05 Ondansetron Inj 4 Mg/2 Ml Vial IV PUSH Q4H PRN Nausea Radiology Results: ITS Impressions Abdomen/Pelvis CT 02/09/21 19:17 IMPRESSION: 1. Possible early or mild COVID pneumonia. 2. Right u
[2021-02-11 08:00] VITALS: BP 136/75; PULSE 79; RESP 16; TEMP 36.4; O2SAT 97
--- NOTE | 2021-02-11 08:19 | WPDANESPN ---
Anes - Prog Note Post-Op Date/Time: 02/11/21 08:19 Cardiovascular status: normal Respiratory status: normal Airway patency: baseline Mental status: baseline Post-Op hydration status: normal Vital Signs: Last Vital Signs Temp 36.3 C L 02/11/21 04:00 Pulse 72 02/11/21 04:00 Resp 20 02/11/21 04:00 BP 139/86 02/11/21 04:00 Pulse Ox 97 02/11/21 04:00 Pain Score (VAS): 0 I/O: Intake & Output 02/10/21 02/11/21 02/11/21 23:59 07:59 15:59 Intake Total 2030 200 Output Total 700 1600 Balance 1330 -1400 Laboratory Tests 02/11/21 05:52 02/11/21 05:52 02/09/21 02/10/21 02/10/21 21:31 09:05 09:05 WBC 9.2 RBC 5.02 Hgb 15.0 Hct 43.0 MCV 85.7 MCH 29.9 MCHC 34.9 RDW 11.9 Plt Count 228 MPV 9.0 Immature Gran % (Auto) 0.4 Neut % (Auto) 65.3 Lymph % (Auto) 19.2 Overton % (Auto) 14.6 H Eos % (Auto) 0.1 Baso % (Auto) 0.4 Lymph # (Auto) 1.76 Overton # (Auto) 1.3 H Eos # (Auto) 0.0 Baso # (Auto) 0.0 Abs Immat Gran (auto) 0.04 H Absolute Neuts (auto) 6.0 Absolute Nucleated RBC 0.0 Nucleated RBC % 0.0 Sodium 138 Potassium 3.3 L Chloride 103 Carbon Dioxide 29 Anion Gap 6 L BUN 11 Creatinine 1.30 Estim Creat Clear Calc 69 Estimated GFR 57 L Glucose 125 H Calcium 8.2 L Magnesium 2.1 Ferritin Total Bilirubin 1.3 AST 25 ALT 22 Alkaline Phosphatase 66 Lactate Dehydrogenase Total Creatine Kinase C-Reactive Protein Total Protein 7.0 Albumin 3.6 SARS-CoV-2 RNA (RT-PCR) Positive A 02/11/21 02/11/21 02/11/21 05:52 05:52 05:52 WBC 10.7 H RBC 5.15 Hgb 15.2 Hct 44.4 MCV 86.2 MCH 29.5 MCHC 34.2 RDW 11.7 Plt Count 275 MPV 9.4 Immature Gran % (Auto) 0.6 H Neut % (Auto) 78.7 H Lymph % (Auto) 10.0 L Overton % (Auto) 10.5 H Eos % (Auto) 0.0 Baso % (Auto) 0.2 Lymph # (Auto) 1.07 Overton # (Auto) 1.1 H Eos # (Auto) 0.0 Baso # (Auto) 0.0 Abs Immat Gran (auto) 0.06 H Absolute Neuts (auto) 8.4 H Absolute Nucleated RBC 0.0 Nucleated RBC % 0.0 Sodium 139 Potassium 3.8 Chloride 104 Carbon Dioxide 30 Anion Gap 5 L BUN 16 Creatinine 1.00 Estim Creat Clear Calc 89 Estimated GFR > 60 Glucose 153 H Calcium 8.6 Magnesium 2.0 Ferritin 447.00 H Total Bilirubin 0.7 AST 24 ALT 23 Alkaline Phosphatase 61 Lactate Dehydrogenase 463 Total Creatine Kinase 213 H C-Reactive Protein 12.0 H Total Protein 8.0 Albumin 3.7 SARS-CoV-2 RNA (RT-PCR) Microbiology 02/09/21 17:48 Urine Clean Catch Urine Culture - Preliminary Proteus Mirabilis Post-procedural complaints: none Patient Feedback: Patient satisfied with anesthetic care.
--- NOTE | 2021-02-11 09:14 | PM.IMPN ---
Progress Note: A&P Assessment and Plan (1) Hydronephrosis with urinary obstruction due to renal calculus: Code(s): N13.2 - Hydronephrosis with renal and ureteral calculous obstruction Status: Acute Assessment and Plan: He presented with right flank pain, nausea, and diarrhea. CT abd/pelvis demonstrated obstructing right UVJ stone with associated hydronephrosis. He underwent cystoscopy with right ureteral stent placement by Dr. Lewis today (02/10/21). Repeat plain films demonstrate right UPJ stone and bilateral nephrolithiasis. Urology following with management deferred to urology Continue analgesics and antiemetics as needed He will need outpatient ESWL outpatient per urology once infection is adequately treated (2) Pyelonephritis: Code(s): N12 - Tubulo-interstitial nephritis, not specified as acute or chronic Status: Acute Assessment and Plan: Urinalysis grossly abnormal in the setting of obstructing stone. WBC normal and pt is afebrile. Preliminary urine culture demonstrates >100,000 CFU/mL Proteus Mirabilis. Continue empiric ceftriaxone (initiated 02/09/21) Blood cultures ordered and pending Await susceptibility report for urine culture and tailor antibiotics appropriately (3) Pneumonia due to COVID-19 virus: Code(s): U07.1 - COVID-19; J12.82 - Pneumonia due to coronavirus disease 2019 Status: Acute Assessment and Plan: CT abd/pelvis demonstrated ground glass opacities in the lung bases. He notes cough for 3 days and some mild dyspnea. He received his 1st COVID vaccine 02/04/12 (Moderna). CXR demonstrates patchy left sided infiltrates. He is not hypoxic. SARS-CoV-2 testing performed 02/09/21 is positive. No specific COVID-19 treatment indicated at this time as he is not hypoxic Continue isolation precautions Monitor clinically and initiate treatment if patient becomes hypoxic (4) Renal lesion: Code(s): N28.9 - Disorder of kidney and ureter, unspecified Status: Acute Assessment and Plan: Right renal 2 cm hypodensity, indeterminate for cancer or infection, on CT abd/pelvis. This is likely due to infection given clinical picture. Urology is following and he will require follow-up CT or MRI w and wo contrast w/ urology in 1 month to further evaluate the lesion and ensure resolution (5) Morbid obesity: Code(s): E66.01 - Morbid (severe) obesity due to excess calories Status: Acute Assessment and Plan: He needs to loose weight with lifestyle interventions including diet and exercise. We discussed this today. (6) Hypertension: Code(s): I10 - Essential (primary) hypertension Status: Acute Assessment and Plan: He was previously on metoprolol and lisinopril but he has not followed with his doctor to get refills in at least 1 month. He has a few readings in 140s to 150 however blood pressures generally at target on monitoring so far. Most recent BP 136/75. Monitor blood pressure and may consider resuming his lisinopril and metoprolol if BP becomes elevated (7) Hyperlipidemia: Code(s): E78.5 - Hyperlipidemia, unspecified Status: Acute Assessment and Plan: Not on statin prior to admission. Check lipid panel Subjective Date/time seen: 02/11/21 09:14 Mr. Mcintyre is a very pleasant 60 y.o. male with PMH significant for morbid obesity, nephrolithiasis requiring stent placement in the past, hypertension, and hyperlipidemia (not on any medications prior to admission) who is seen in follow-up for obstructing right ureteropelvic junction stone with mild hydronephrosis s/p cystoscopy with right ureteral stent placement and UTI. He is also positive for COVID-19 but he is not hypoxic. He is doing well today. He reports no further flank pain or nausea since stent placement. He has some very mild dysuria following cystoscopy which has improved today. He slept well. His appetite is goo
[2021-02-11 12:00] VITALS: BP 131/77; PULSE 83; RESP 16; TEMP 36.4; O2SAT 98
[2021-02-11 16:00] VITALS: BP 159/77; PULSE 91; RESP 20; TEMP 37.1; O2SAT 96
[2021-02-11 20:00] VITALS: BP 134/78; PULSE 87; RESP 18; TEMP 37.2; O2SAT 98
[2021-02-11] MEDS: ENOXAPARIN 40 MG/0.4 ML SYRINGE SUB-Q (20:19)
[2021-02-12] VITALS: BP 133/76; PULSE 87; RESP 18; TEMP 37.2; O2SAT 96
[2021-02-12 04:00] VITALS: BP 137/77; PULSE 79; RESP 18; TEMP 37.2; O2SAT 98
[2021-02-12 06:09] LABS: Basophils Absolute Auto 0.1 K/mm3 (0.0-0.1); Basophils Percent Auto 0.5 % (0.2-1.2); Eosinophils Percent Auto 0.1 % (0-4.4); Hematocrit 41.7 % (42.0-52.0); Hemoglobin 14.3 g/dL (14.0-18.0); Immature Granulocyte Absolute 0.07 K/mm3 (0.00-0.031); Immature Granulocyte Percent A 0.6 % (0-0.5); Lymphocytes Absolute Auto 2.38 K/mm3 (0.9-3.2); Mean Corpuscular HGB Conc 34.3 g/dl (32-36); Mean Corpuscular Hemoglobin 29.5 pg (26-34); Mean Corpuscular Volume 86.2 fl (80-100); Mean Platelet Volume 8.8 fl (7.4-10.4); Monocytes Absolute Auto 1.4 K/mm3 (0.1-0.6); Monocytes Percent Auto 13.1 % (2.6-8.5); Neutrophils Absolute Auto 6.9 K/mm3 (1.3-6.7); Neutrophils Percent Auto 63.7 % (45.5-73.1); Platelet Count Result 280 k/mm3 (150-375); Red Blood Count 4.84 M/mm3 (4.6-6.20); Red Cell Distribution Width 11.9 % (11.5-14.5); White Blood Count 10.8 K/mm3 (4.5-10.0)
[2021-02-12 06:26] LABS: Alanine Aminotransferase 22 U/L (4-50); Albumin Level 3.3 g/dL (3.5-5.1); Alkaline Phosphatase 57 U/L (38-126); Anion Gap 5 mmol/L (8-16); Aspartate Amino Transferase 21 U/L (17-59); Bilirubin,Total 0.6 mg/dL (0.2-1.3); Blood Urea Nitrogen 12 mg/dL (9-20); CRP 4.4 mg/dL (<1.0); Calcium 7.9 mg/dL (8.4-10.2); Carbon Dioxide 30 mmol/L (22-30); Chloride 103 mmol/L (98-107); Cholesterol 142 mg/dL (0-200); Creatine Kinase 116 U/L (55-170); Estimated CRCL calculation 69 ml/min; Estimated Glomerular Filt Rate 57; Glucose 114 mg/dL (75-110); HDL Direct 22 mg/dL; Lactate Dehydrogenase 407 U/L (313-618); Magnesium 1.6 mg/dL (1.6-2.3); Potassium 3.3 mmol/L (3.4-5.0); Sodium 138 mmol/L (137-145); Triglycerides 92 mg/dL (<150)
[2021-02-12 06:28] LABS: Hemoglobin A1C 6.3 % (<5.7)
[2021-02-12 06:35] LABS: LDL Cholesterol Direct 96 mg/dL
[2021-02-12 08:00] VITALS: BP 124/81; PULSE 78; RESP 18; TEMP 37; O2SAT 95
[2021-02-12] MEDS: POTASSIUM CHLORIDE 20 MEQ TABLET PO (11:22)
[2021-02-12 12:00] VITALS: BP 131/78; PULSE 79; RESP 18; TEMP 36.6; O2SAT 97
--- NOTE | 2021-02-12 13:14 | PM.DS ---
DS: Admitting Diagnosis Admitting Diagnosis Admitting Diagnosis: Ureterolithiasis DS: Discharge Diagnosis Discharge Diagnosis (1) Hydronephrosis with urinary obstruction due to renal calculus: Code(s): N13.2 - Hydronephrosis with renal and ureteral calculous obstruction Status: Acute Assessment and Plan: He presented with right flank pain, nausea, and diarrhea. CT abd/pelvis demonstrated obstructing right UVJ stone with associated hydronephrosis. He underwent cystoscopy with right ureteral stent placement by Dr. Lewis on 02/10/21. He tolerated the procedure well and pain was well controlled. Repeat plain films demonstrate right UPJ stone and bilateral nephrolithiasis. He will need outpatient ESWL outpatient per urology once infection is adequately treated. (2) Pyelonephritis: Code(s): N12 - Tubulo-interstitial nephritis, not specified as acute or chronic Status: Acute Assessment and Plan: Urinalysis grossly abnormal in the setting of obstructing stone. WBC normal and pt is afebrile. Preliminary urine culture demonstrates >100,000 CFU/mL Proteus Mirabilis. He was started on IV ceftriaxone and will continue PO cefdinir x12 days. Blood cultures negative to date and final cultures will be monitored. He will follow-up with urology as an outpatient. (3) Pneumonia due to COVID-19 virus: Code(s): U07.1 - COVID-19; J12.82 - Pneumonia due to coronavirus disease 2018 Status: Acute Assessment and Plan: CT abd/pelvis demonstrated ground glass opacities in the lung bases. He notes cough for 3 days and some mild dyspnea. He received his 1st COVID vaccine 02/04/12 (Moderna). CXR demonstrated patchy left sided infiltrates. He is not hypoxic. SARS-CoV-2 testing performed 02/09/21 was positive. No COVID-19 specific treatment including dexamethasone or remdesivir was needed as he was not hypoxic. Isolation precautions initiated and discussed importance of isolation at home. (4) Renal lesion: Code(s): N28.9 - Disorder of kidney and ureter, unspecified Status: Acute Assessment and Plan: Right renal 2 cm hypodensity, indeterminate for cancer or infection, on CT abd/pelvis. This is likely due to infection given clinical picture. Urology is following and he will require follow-up CT or MRI w and wo contrast w/ urology in 1 month to further evaluate the lesion and ensure resolution (5) Hypertension: Code(s): I10 - Essential (primary) hypertension Status: Acute Assessment and Plan: He was previously on metoprolol and lisinopril but he has not followed with his doctor to get refills in at least 1 month. He blood pressure readings in the 140s, but overall blood pressures were well controlled without antihypertensive agents. He will need to follow-up with PCP for further monitoring. (6) Prediabetes: Code(s): R73.03 - Prediabetes Status: Acute Assessment and Plan: He had elevated fasting glucose. A1c was 6.3. Given elevated A1c and BMI >35, he was started on metformin 500 mg BID. Lifestyle changes recommended including diet and exercise. He will need to follow up with PCP for further monitoring. (7) Hyperlipidemia: Code(s): E78.5 - Hyperlipidemia, unspecified Status: Acute Assessment and Plan: Lipid panel evaluated and was in normal limits with the exception of low HDL. Lifestyle modifications recommended. DS: Summary Hospital Course Reason for hospitalization: Ureterolithiasis Hospital Course: Date of admission: 02/09/2021 Date of discharge: 02/12/2021 Chilo Mcintyre is a very pleasant 60 y.o. male with PMH significant for morbid obesity, nephrolithiasis requiring stent placement in the past, hypertension, and hyperlipidemia who presented to the emergency department on 02/09/2021 with complaints of bilateral lower quadrant pain ongoing for 3 days with associated nausea and diarrhea. Upon presentation, his magaly
== END 2021-02-12 15:20 | disposition home or self-care (01) ==
LOC: ANHED 21:15 → ANH3MEDSUR 21:40
PROVIDERS: Physician Assistant; Urology; Admitting Provider Internal Medicine; Emergency Provider Nurse Practitioner; Visit Provider Physician Assistant
PROC: (CPT 52352; principal; 2021-02-10 10:00)
DX: N13.2 Hydronephrosis with renal and ureteral calculous obstruction (principal); N12 Tubulo-interstitial nephritis, not specified as acute or chronic; U07.1 COVID-19; J12.82 Pneumonia due to coronavirus disease 2019; N30.00 Acute cystitis without hematuria; N28.9 Disorder of kidney and ureter, unspecified; R73.03 Prediabetes; I10 Essential (primary) hypertension; E78.5 Hyperlipidemia, unspecified; Z87.891 Personal history of nicotine dependence; E66.01 Morbid (severe) obesity due to excess calories; Z68.39 Body mass index [BMI] 39.0-39.9, adult
CPT/HCPCS: 52332; 36415; 71045; 74018; 74177; 74420; 80053; 80061; 81001; 82550; 82728; 83036; 83615; 83690; 83735; 85025; 86140; 87040; 87077; 87086; 87088; 87186; 87804; 96365; 96375; 99285; A9270; C1758; C1769; C2617; C9803; G0378; J0696; J1100; J1650; J2270; J2405; J2704; J7030; J7120; Q9966; Q9967; U0003; U0005

== ENCOUNTER 2021-02-28 08:52 | Outpatient (CLI) | payer OTHER, SELFPAY ==
--- NOTE | 2021-02-28 09:30 | ECG_ITS ---
Measurements Intervals Mcgee Rate: 90 P: 40 OH: 166 QRS: -5 QRSD: 94 T: 30 QT: 338 QTc: 415 Interpretive Statements SINUS RHYTHM POOR R WAVE PROGRESSION, ANTERIOR LEADS CONSIDER INFERIOR INFARCT, AGE INDETERMINATE ABNORMAL ECG Electronically Signed On 02-28-2021 9:33:44 CDT by Jameson Gill D.O.
[2021-02-28 09:43] LABS: INR 0.9; Prothrombin Time 13.1 Seconds (11.1-14.7)
[2021-02-28 09:44] LABS: Partial Thromboplastin Time 29.7 SECONDS (22.3-36.8)
== END 2021-02-28 08:53 | disposition home or self-care (01) ==
LOC: ANHSURGERY 08:56
PROVIDERS: PCP Emergency Medicine; Visit Provider Urology
DX: N20.0 Calculus of kidney (principal); E78.5 Hyperlipidemia, unspecified; I10 Essential (primary) hypertension; Z01.818 Encounter for other preprocedural examination; R94.31 Abnormal electrocardiogram [ECG] [EKG]
CPT/HCPCS: 36415; 85610; 85730; 87086; 93005

== ENCOUNTER 2021-03-08 02:03 | Day surgery (SDC) | payer OTHER, SELFPAY ==
[2021-02-22 14:13] VITALS: BMI 40.7
--- NOTE | 2021-02-28 09:38 | PM.HPGS ---
History of Present Illness History of Present Illness Consent: Risks, benefits, and alternatives have been discussed and questions answered. Patient agrees to proceed with procedure. Chief complaint: Right kidney stone Narrative: Chilo Mcintyre is a 60 year old male Recently presented to the ER at [facility] with a 3 day history of abdominal pain and nausea. CT scan revealed a 10 mm partially obstructing right UPJ stone. Ureteral stent was placed and he presents now for right ESWL. In addition to the stone is a 2 cm indeterminate hypodensity in his right kidney that will need follow-up imaging. He is aware of the risk of lithotripsy including, but not limited to, failure to completely fragment the stone, renal injury with perinephric hematoma. Review of Systems Cardiovascular: Cardiovascular: Denies chest pain, Denies lightheadedness, Denies palpitations and Denies dyspnea Respiratory: Respiratory: Denies dyspnea Gastrointestinal: Gastrointestinal: Denies diarrhea, Denies nausea and Denies vomiting Genitourinary: Genitourinary: Denies hematuria and Denies dysuria Endocrine: Endocrine: Denies palpitations PMFSH Past Medical History Medical History Bilateral kidney stones Hyperlipidemia Hypertension Surgical History Surgical History History of bilateral inguinal hernia repair S/P cystoscopy with ureteral stent placement (~2019) X2 Status post open reduction with internal fixation of fracture (~2018) Left tib-fib fracture Family History Family History Mother , Around age 75 Diabetes mellitus Thyroid disease Father , Around age 75 Diabetes mellitus COPD (chronic obstructive pulmonary disease) Social History Social History Social History: The patient and his her currently . He still goes over to their house and watches his 15-year-old daughter. He also has 2 other biologic children ages 40 and 32. He also has a stepson who was 24. He is employed at [employer]. He has had intermittent tobacco use since he was a teenager. He reports that he has never smoked more than a half a pack of cigarettes a day. He states that he is currently quit smoking but is vague as to when he last smoked. He drinks 3-4 alcoholic beverages a week. Years smoked: 5 Smoking status: Former smoker Smoking end date: 11/16/08 Alcohol intake: current Drinks per week: 3 Substance use: never Substance use type: does not use Gender identity (if verbalized by the patient): Male Spiritual care concerns: No Meds Home Medications and Allergies Home Medications Medication Instructions Recorded Confirmed Type metformin 500 mg PO BID #60 tablet 02/12/21 02/22/21 Rx cefdinir 300 mg PO BID 02/22/21 02/22/21 History lisinopril 20 mg PO DAILY 02/22/21 02/22/21 History metoprolol succinate 25 mg PO DAILY 02/22/21 02/22/21 History simvastatin 20 mg PO HS 02/22/21 02/22/21 History Allergies Allergy/AdvReac Type Severity Reaction Status Date / Time No Known Allergies Allergy Verified 02/22/21 14:10 Exam Const: General: no acute distress Resp: Effort & Inspection: normal respiratory effort GI: Inspection: non-distended GI Palp: No abdominal tenderness and No Guarding due to palpation present (GI) Auscultation: normal bowel sounds Assessment and Plan Assessment and plan (1) Hydronephrosis with urinary obstruction due to renal calculus: Code(s): N13.2 - Hydronephrosis with renal and ureteral calculous obstruction Status: Acute (2) Right kidney stone: Code(s): N20.0 - Calculus of kidney Status: Acute
--- NOTE | 2021-03-07 10:11 | WPDANESEPPF ---
Anes - Initial Pre Proc Eval Procedure: Operation Date: 03/08/21 09:30 Proposed Procedures p Right Extracorporeal Shock Wave Lithotripsy - Romulo Lewis MD Date/Time: 03/07/21 10:11 Surgeon: Romulo Lewis MD Pre Op Diagnosis: Right kidney stone Patient Data Age: 60 Gender: M Height: 1.73 m Weight: 121.5 kg Allergies Allergy/AdvReac Type Severity Reaction Status Date / Time No Known Allergies Allergy Verified 03/08/21 09:26 Home Medications Medication Instructions Recorded Confirmed Type metformin 500 mg PO BID #60 tablet 02/12/21 02/22/21 Rx cefdinir 300 mg PO BID 02/22/21 02/22/21 History lisinopril 20 mg PO DAILY 02/22/21 02/22/21 History metoprolol succinate 25 mg PO DAILY 02/22/21 02/22/21 History simvastatin 20 mg PO HS 02/22/21 02/22/21 History Patient hx anesthesia problems: none Family hx anesthesia problems: none PMFSH Past Medical History Medical History (Updated 03/08/21 @ 09:47 by Gulshan Lr MD) Bilateral kidney stones Hyperlipidemia Hypertension Obesity Prediabetes Surgical History Surgical History History of bilateral inguinal hernia repair S/P cystoscopy with ureteral stent placement (~2018) X2 Status post open reduction with internal fixation of fracture (~2017) Left tib-fib fracture Family History Family History Mother , Around age 75 Diabetes mellitus Thyroid disease Father , Around age 75 Diabetes mellitus COPD (chronic obstructive pulmonary disease) Social History Social History Social History: The patient and his her currently . He still goes over to their house and watches his 15-year-old daughter. He also has 2 other biologic children ages 40 and 32. He also has a stepson who was 24. He is employed at [employer]. He has had intermittent tobacco use since he was a teenager. He reports that he has never smoked more than a half a pack of cigarettes a day. He states that he is currently quit smoking but is vague as to when he last smoked. He drinks 3-4 alcoholic beverages a week. Years smoked: 5 Smoking status: Former smoker Smoking end date: 11/16/08 Alcohol intake: current Drinks per week: 2 Substance use: never Substance use type: does not use Living arrangements: with family Gender identity (if verbalized by the patient): Male Spiritual care concerns: No Anes - Eval Final PreProcedure Day of Procedure 03/07/21 10:11 Patient weight: obese Heart: regular rate and rhythm Lungs: clear to auscultation and normal air movement Airway: Mallampati scale class II Neurological: alert and oriented Last oral intake: >/= 8 hours ASA classification: III Emergent: no Anesthetic plan: proceed Anesthesia type and monitoring: general LMA Informed Consent: The patient's anesthetic plan and its attendant risks and benefits were discussed with the patient/family/POA. Questions were solicited and answers provided to the satisfaction of the patient/family/POA.
[2021-03-08] VITALS (8 sets, daily range): BP systolic 111–139; BP diastolic 72–86; PULSE 77–106; RESP 13–21; TEMP 36–36.3; O2SAT 96–99
--- NOTE | ~2021-03-08 | XR_ITS ---
EXAMINATION: XR abdomen/kub 1V DATE: 03/08/2021 09:04 INDICATION: Kidney stone. TECHNIQUE: A supine view of the abdomen on 2 radiographs was obtained. COMPARISON: CT abdomen and pelvis 02/09/2021 FINDINGS: There are no dilated loops of bowel. There is a right internal ureteral stent in expected p osition. There is a 10 mm stone in the right kidney lower pole. There is a 10 mm stone in proximal ri ght ureter. There are stones in left kidney measuring up to 6 mm. There are phleboliths in the pelvis . IMPRESSION: 1. Stones in the kidneys and proximal right ureter. Right internal ureteral stent in expected positio n. Reviewed, dictated and finalized at location B. IMPRESSION: 1. Stones in the kidneys and proximal right ureter. Right internal ureteral ben nt in expected position.
--- NOTE | 2021-03-08 07:01 | WPDHPUPDATE1 ---
History and Physical Update Update Date/Time: 03/08/21 07:01 History and Physical has been reviewed, including an updated exam of the patient. There are NO changes in the patient's condition. Risks, benefits, and alternatives have been discussed and questions answered. Patient agrees to proceed with procedure.
[2021-03-08] MEDS: LACTATED RINGERS 1,000 ML 30 ML IV CONT (09:35)
[2021-03-08 09:40] LABS: Glucose Point of Care 106 (65-105)
[2021-03-08] MEDS: ceFAZolin 2 GM/D5W 50 ML 2 GM/50 ML BAG IVPB (10:30)
--- NOTE | 2021-03-08 10:49 | PM.PROC ---
Procedure Note - Detailed Date of procedure: 03/08/21 Pre-op diagnosis: Right kidney stone Post-op diagnosis: same Procedure performed: Right ESWL Description of procedure: The patient was brought to the operative suite where he was placed in the supine position on the Dornier lithotripsy table. The focal point of the lithotripter was placed at a 10mm right proximal ureteral calculus. A total of 3000 shocks were delivered at a power setting of 6. There appeared to be good fragmentation of the stone. The patient tolerated the procedure well and was taken to the recovery room in good condition. Anesthesia: GLMA Surgeon: Romulo Lewis MD Drains: No Packing: No Pathology: none sent Complications: No immediate complications Condition: stable Disposition: PACU
== END 2021-03-08 12:30 | disposition home or self-care (01) ==
PROVIDERS: PCP Emergency Medicine; Visit Provider Urology
PROC: (CPT 50590; principal; 2021-03-08 09:30)
DX: N20.1 Calculus of ureter (principal); I10 Essential (primary) hypertension; E78.5 Hyperlipidemia, unspecified; R73.03 Prediabetes; E66.9 Obesity, unspecified; Z68.39 Body mass index [BMI] 39.0-39.9, adult; Z79.84 Long term (current) use of oral hypoglycemic drugs; Z87.891 Personal history of nicotine dependence
CPT/HCPCS: 50590; 36415; 74018; 82948; 85610; 85730; 87086; 93005; J0690; J1100; J2405; J2704; J7120

== ENCOUNTER 2021-03-22 14:15 | Outpatient (CLI) | payer OTHER, SELFPAY ==
--- NOTE | ~2021-03-22 | XR_ITS ---
EXAMINATION: XR abdomen/kub 1V DATE: 03/22/2021 14:37 INDICATION: Right kidney stone. TECHNIQUE: A supine view of the abdomen on 2 radiographs was obtained. COMPARISON: CT abdomen and pelvis 02/09/2021, radiographs 03/08/2021 FINDINGS: There are no dilated loops of bowel. There is a right internal ureteral stent in expected p osition. There are 4 mm and 6 mm stones in left kidney. There is an 8 mm stone in proximal right uret er. There is a 14 mm stone in right kidney. IMPRESSION: 1. Stones in the kidneys and proximal right ureter with right internal ureteral stent in expected pos ition. Reviewed, dictated and finalized at location A. IMPRESSION: 1. Stones in the kidneys and proximal right ureter with right internal ureteral stent in expected position.
== END 2021-03-22 14:16 | disposition home or self-care (01) ==
LOC: ANHIMG 14:23
PROVIDERS: PCP Emergency Medicine; Visit Provider Urology
DX: N20.0 Calculus of kidney (principal); N20.1 Calculus of ureter; Z96.0 Presence of urogenital implants
CPT/HCPCS: 74018

== ENCOUNTER 2021-03-28 00:29 | Day surgery (SDC) | payer OTHER, SELFPAY ==
[2021-03-27 12:15] VITALS: BMI 39.8
--- NOTE | ~2021-03-28 | XR_ITS ---
EXAMINATION: XR stent kub - surgery DATE: 03/28/2021 12:24 INDICATION: Right renal stone extraction and stent exchange TECHNIQUE: 4 fluoroscopic spot images of the abdomen and pelvis were obtained during procedure perfor med by Dr. Lewis. Radiologist was not present for the imaging or procedure. The amount of fluoroscop y time used during this procedure was 1.8 minutes. COMPARISON: 03/22/2021 FINDINGS: Right internal ureteral stent in expected position with loops formed over the interpolar region of th e right kidney and in the bladder. No interval change in a cluster of stones at the lower pole calyx of the right kidney or of a stone alongside the ureteral stent in the proximal right ureter projectin g over the right transverse process of L3. Subsequent images demonstrate placement of a new stone wit h a larger proximal loop formed in the region of the right renal pelvis and distal loop in the bladde r. The stones at the lower pole of the right kidney remain unchanged. The stone initially seen along the stent in the proximal right ureter is no longer visualized and has likely been extracted. IMPRESSION: 1. Fluoroscopy utilized during proximal right ureteral stone extraction and right internal ureteral s tent exchange with a new stent in expected position. See procedure note for further detail. Reviewed, dictated and finalized at location A. IMPRESSION: 1. Fluoroscopy utilized during proximal right ureteral stone extraction and rig ht internal ureteral stent exchange with a new stent in expected position. See procedure note for further detail.
--- NOTE | 2021-03-28 07:27 | WPDHPUPDATE1 ---
History and Physical Update Update Date/Time: 03/28/21 07:27 History and Physical has been reviewed, including an updated exam of the patient. There are NO changes in the patient's condition. Risks, benefits, and alternatives have been discussed and questions answered. Patient agrees to proceed with procedure.
[2021-03-28 08:45] VITALS: BP 138/94; PULSE 104; RESP 16; TEMP 36.8; O2SAT 96
[2021-03-28] MEDS: LACTATED RINGERS 1,000 ML 30 ML IV CONT (09:44)
[2021-03-28 09:52] LABS: Glucose Point of Care 106 (65-105)
--- NOTE | 2021-03-28 11:07 | WPDANESEPPF ---
Anes - Initial Pre Proc Eval Procedure: Operation Date: 03/28/21 11:15 Proposed Procedures p Cystoscopy, Right Ureteroscopy, Stone Extraction, - Romulo Lewis MD s Holmium Laser Procedure - Romulo Lewis MD Date/Time: 03/28/21 11:07 Surgeon: Romulo Lewis MD Pre Op Diagnosis: renal/ureteral stone, kidney ca Patient Data Age: 60 Gender: M Height: 5 ft 8 in Weight: 118 kg Last Vital Signs Temp 98.2 F 03/28/21 08:45 Pulse 104 H 03/28/21 08:45 Resp 16 03/28/21 08:45 BP 138/94 H 03/28/21 08:45 Pulse Ox 96 03/28/21 08:45 Allergies Allergy/AdvReac Type Severity Reaction Status Date / Time No Known Allergies Allergy Verified 03/28/21 10:12 Home Medications Medication Instructions Recorded Confirmed Type metformin 500 mg PO BID #60 tablet 02/12/21 03/28/21 Rx lisinopril 20 mg PO DAILY 02/22/21 03/28/21 History metoprolol succinate 25 mg PO DAILY 02/22/21 03/28/21 History simvastatin 20 mg PO HS 02/22/21 03/28/21 History ergocalciferol (vitamin D2) 1,250 mcg PO WEEKLY 03/27/21 03/28/21 History Laboratory Tests 03/28/21 09:45 POC Capillary Glucose 106 mg/dl mg/dl (65-105) Patient hx anesthesia problems: none Family hx anesthesia problems: none [facility] Past Medical History Medical History (Updated 03/08/21 @ 09:47 by Gulshan Lr MD) Bilateral kidney stones Hyperlipidemia Hypertension Obesity Prediabetes Surgical History Surgical History History of bilateral inguinal hernia repair S/P cystoscopy with ureteral stent placement (~2018) X2 Status post open reduction with internal fixation of fracture (~2017) Left tib-fib fracture Family History Family History Mother , Around age 75 Diabetes mellitus Thyroid disease Father , Around age 75 Diabetes mellitus COPD (chronic obstructive pulmonary disease) Social History Social History Social History: The patient and his her currently . He still goes over to their house and watches his 15-year-old daughter. He also has 2 other biologic children ages 40 and 32. He also has a stepson who was 24. He is employed at [employer]. He has had intermittent tobacco use since he was a teenager. He reports that he has never smoked more than a half a pack of cigarettes a day. He states that he is currently quit smoking but is vague as to when he last smoked. He drinks 3-4 alcoholic beverages a week. Years smoked: 5 Smoking status: Former smoker Smoking end date: 11/16/08 Alcohol intake: current Drinks per week: 2 Substance use: never Substance use type: does not use Living arrangements: with family Gender identity (if verbalized by the patient): Male Spiritual care concerns: No Anes - Eval Final PreProcedure Day of Procedure 03/28/21 11:07 Patient weight: morbidly obese Heart: regular rate and rhythm Lungs: clear to auscultation Airway: Mallampati scale class II Neurological: alert and oriented Last oral intake: >/= 8 hours ASA classification: III Emergent: no Anesthetic plan: proceed Anesthesia type and monitoring: general LMA and standard monitoring Informed Consent: The patient's anesthetic plan and its attendant risks and benefits were discussed with the patient/family/POA. Questions were solicited and answers provided to the satisfaction of the patient/family/POA.
--- NOTE | 2021-03-28 11:12 | WPDHPUPDATE1 ---
History and Physical Update Update Date/Time: 03/28/21 11:12 History and Physical has been reviewed, including an updated exam of the patient. There are NO changes in the patient's condition. Risks, benefits, and alternatives have been discussed and questions answered. Patient agrees to proceed with planned procedure. Addendum: plan is to proceed with cystoscopy, right ureteroscopy with laser lithotripsy, stone extraction possible stent replacement
[2021-03-28] MEDS: ceFAZolin 2 GM/D5W 50 ML 2 GM/50 ML BAG IVPB (11:20)
[2021-03-28 12:25] VITALS: BP 158/93; PULSE 98; RESP 18; TEMP 36.3; O2SAT 99
[2021-03-28 12:40] VITALS: BP 163/98; PULSE 88; RESP 20; O2SAT 100
--- NOTE | 2021-03-28 12:49 | PM.PROC ---
Procedure Note - Detailed Date of procedure: 03/28/21 Pre-op diagnosis: Right ureteral and renal stones Post-op diagnosis: same Procedure performed: cystoscopy, right ureteral stent removal, right ureteroscopy with laser lithotripsy, stone extraction and stent replacement Description of procedure: patient brought to the op suite was prepped and draped in routine sterile fashion while in a dorsal lithotomy position. This done after the uneventful induction of general anesthetic. Cystoscopy is undertaken with a 21 F rigid cystoscope. The indwelling stent was grasped and removed with ease. A 0.035 in glidewire was advanced in the right renal pelvis. Distal ureter dilated with an 8 F 10 F dilator and a ureteral access sheath was placed. Via flexible ureteroscopy the large right proximal ureteral residual fragment is fractured using a 323 micron holmium laser dusting settings. Large pieces were removed. The smaller stone right lower pole calyx. Is able to treat about half of this but I could not reach the entire stone given the limitations on deflection of the flexible ureteral scope para scopes wires removed. Replace the ureteral stent the patient was taken recovery room in good condition Anesthesia: GLMA Surgeon: Romulo Lewis MD Estimated blood loss (mL): 0 Drains: Yes Packing: No Pathology: yes Complications: No immediate complications Condition: stable Disposition: PACU
[2021-03-28 12:55] VITALS: BP 159/88; PULSE 87; RESP 20; O2SAT 96
[2021-03-28 13:04] VITALS: BP 168/96; PULSE 86
[2021-03-28 13:35] VITALS: BP 166/81; PULSE 80
[2021-03-28 13:48] LABS: Glucose Point of Care 115 (65-105)
--- NOTE | 2021-03-28 14:00 | SUR.PHASEII ---
Patient is stable and just waiting for ride. RN told patient to take his BP meds when he gets home.
== END 2021-03-28 14:14 | disposition home or self-care (01) ==
PROVIDERS: PCP Emergency Medicine; Visit Provider Urology
PROC: (CPT 52352; principal; 2021-03-28 11:15)
PROC: (CPT 52356; 2021-03-28 11:15)
DX: N20.2 Calculus of kidney with calculus of ureter (principal); E78.5 Hyperlipidemia, unspecified; I10 Essential (primary) hypertension; R73.03 Prediabetes; Z79.84 Long term (current) use of oral hypoglycemic drugs; Z87.891 Personal history of nicotine dependence; E66.01 Morbid (severe) obesity due to excess calories; Z68.39 Body mass index [BMI] 39.0-39.9, adult
CPT/HCPCS: 52356; 82365; 82948; 88300; A9270; C1769; C1894; C2617; J0690; J1100; J2250; J2405; J2704; J3010; J7120; Q9966

== ENCOUNTER 2021-06-11 12:04 | Outpatient (CLI) | payer OTHER, SELFPAY ==
--- NOTE | ~2021-06-11 | US_ITS ---
EXAMINATION:US venous doppler LE LT INDICATION:Left lower extremity pain TECHNIQUE: Multiple grayscale, color flow and Doppler images of the left lower extremity deep venous systems were obtained and reviewed. COMPARISON:No prior studies for comparison. FINDINGS: The common femoral, superficial femoral and popliteal veins demonstrate normal respiratory variation, augmentation and compressibility. Color flow is also seen within the posterior tibial, pe roneal, greater saphenous and profunda veins. IMPRESSION: 1: No lower extremity deep venous thrombosis. Reviewed, dictated and finalized at location A.
[2021-06-11 13:14] LABS: Hemoglobin 14.6 g/dL (14.0-18.0); Mean Corpuscular Hemoglobin 29.4 pg (26-34); Mean Corpuscular Volume 86.7 fl (80-100); Mean Platelet Volume 8.7 fl (7.4-10.4); Platelet Count Result 270 k/mm3 (150-375); Red Blood Count 4.96 M/mm3 (4.6-6.20); Red Cell Distribution Width 12.5 % (11.5-14.5); White Blood Count 11.1 K/mm3 (4.5-10.0)
[2021-06-11 13:24] LABS: Hemoglobin A1C 6.3 % (<5.7)
[2021-06-11 13:25] LABS: Anion Gap 9 mmol/L (8-16); Blood Urea Nitrogen 11 mg/dL (9-20); Calcium 9.1 mg/dL (8.4-10.2); Carbon Dioxide 25 mmol/L (22-30); Chloride 103 mmol/L (98-107); Estimated Glomerular Filt Rate > 60; Glucose 113 mg/dL (65-110); Potassium 4.1 mmol/L (3.4-5.0); Sodium 137 mmol/L (137-145)
== END 2021-06-11 12:05 | disposition home or self-care (01) ==
PROVIDERS: PCP Emergency Medicine; Visit Provider Emergency Medicine
DX: M79.662 Pain in left lower leg (principal); E11.9 Type 2 diabetes mellitus without complications; I10 Essential (primary) hypertension; E78.5 Hyperlipidemia, unspecified; N20.0 Calculus of kidney
CPT/HCPCS: 36415; 80048; 83036; 85027; 93971

== ENCOUNTER 2024-12-29 15:21 | Emergency (ER) | payer MEDICAID, SELFPAY ==
--- NOTE | ~2024-12-29 | XR_ITS ---
EXAMINATION: XR knee RT min 4V DATE: 12/29/2024 15:54 INDICATION: Right knee pain. TECHNIQUE: 4 views of right knee were obtained. COMPARISON: None. FINDINGS: Alignment is normal. No fracture. There is mild tricompartmental osteoarthritis characteriz ed by tiny osteophytes. No joint space narrowing. No knee joint effusion. IMPRESSION: 1. Mild right knee osteoarthritis. Reviewed, dictated and finalized at location A. ARTIST
--- OUTSIDE RECORDS SUMMARY | 2024-12-29 15:24 | XMS_ITS | Clinical Summary ---
Author Organization [facility] Address [address] [place] [address] Care Team Providers Care Diamond Cutter Name Role Phone Caio Yanez MD Primary Care Provider [phone] Source Comments [facility],non-owned Affiliates and Associated Physician Practices is amultiple site organization consisting of ambulatory clinics and hospital sitesin [place], [place], [place] and [place]. This disclosure is being madepursuant to the Care Everywhere program and may not contain all information available regarding this patient. Last updated 18.[facility] Medications * Be aware that medications may not be up to date on this document. Alwaysverify current medications with the patient. Medication Sig Dispensed Refills Start Date End Date Status simvastatin (ZOCOR) 10 MG tablet 1 08/31/2016 Active betamethasone dipropionate (DIPROSONE) 0.05 % cream 0 08/28/2016 Active lisinopril (PRINIVIL; ZESTRIL) 20 MG tablet Take 20 mg by mouth DAILY. 5 08/30/2016 Active clotrimazole (LOTRIMIN AF) 1 % cream 0 08/28/2016 Active Active Problems Problem Noted Date Diagnosed Date Calculus of kidney 09/18/2016 Family History Medical History Relation Name Comments Arthritis - Rheumatoid Brother Statu s: Alive Diabetes Brother Seizures Brother Diabetes Father Status: d Diabetes Mother Status: Alive Heart Disease Mother Arthritis - Rheumatoid Sister Statu s: Alive Diabetes Sister Heart Disease Sister Relation Name Status Comments Brother Father Mother Sister Social History Tobacco Use Types Packs/Day Years Used Date Smoking Tobacco: Former Sex and Gender Information Value Date Recorded Sex Assigned at Not on file Gender Identity Not on file Sexual Orientation Not on file Last Filed Vital Signs Vital Sign Reading Time Taken Comments Blood Pressure 145/92 09/18/2016 2:24 PM CDT Pulse 89 09/18/2016 2:24 PM CDT Temperature 36.6 C (97.9 F) 09/18/2016 2:24 PM CDT Respiratory Rate - - Oxygen Saturation 95% 09/18/2016 2:24 PM CDT Inhaled Oxygen Concentration - - Weight 109.3 kg (241 lb) 09/18/2016 2:24 PM CDT Height 172.7 cm (5' 8 ) 09/18/2016 2:24 PM CDT Body Mass Index 36.64 09/18/2016 2:24 PM CDT Plan of Treatment Health Maintenance Due Date Last Done Comments COLOGUARD (AGES 45-75) - COL ON CA SCREENING 1962 COLON MONITORING 1962 COLONOSCOPY - COLON CA SCREENING 1962 CT COLONOGRAPHY - COLON CA SCREENING 1962 Colorectal Cancer Screening 1962 FIT - COLON CA SCREENING 1962 FLEX SIG - COLON CA SCREENING 1962 HIV SCREENING 1977 HEPATITIS C SCREENING 04/23/1980 DTAP/TDAP/TD VACCINES (1 - Tdap) 1981 PNEUMOCOCCAL VACCINE 50+ (1 of 1 - PCV) 2012 ZOSTER VACCINE (1 of 2) 2012 COVID-19 VACCINE ( - 2023-2 5 season) 2024 INFLUENZA VACCINE (#1) 2024 DEPRESSION SCREENING 11/16/2024 MEDICARE AWV CALENDAR YEAR 2024 Respiratory Syncytial Virus (RSV) Vaccine Pt: or over 60 yrs (1 - 1-dose 75+ series) 2037 HEPATITIS B VACCINE Aged Out No longe r eligible based on patient's age to complete this topic HIB VACCINE Aged Out No longer eligi ble based on patient's age to complete this topic HPV VACCINE Aged Out No longer eligi ble based on patient's age to complete this topic MENINGOCOCCAL (Group B) VACCINE Aged Out No longer eligible based on patient's age to complete this topic MENINGOCOCCAL VACCINE Aged Out No jenny frank eligible based on patient's age to complete this topic PNEUMOCOCCAL VACCINE Aged Out No long er eligible based on patient's age to complete this topic Care Teams Diamond Cutter Relationship Specialty Start Date End Date Caio Yanez MD [address] [facility] [address] [phone] PCP - General 09/08/08
--- OUTSIDE RECORDS SUMMARY | 2024-12-29 15:24 | XMS_ITS | Referral Summary ---
Author Organization [facility] Address [address] [place] [address] Care Team Providers Care Portable Canteen Operator Name Role Phone Caio Yanez MD Primary Care Provider [phone] Source Comments [facility],non-owned Affiliates and Associated Physician Practices is amultiple site organization consisting of ambulatory clinics and hospital sitesin [place], [place], [place] and [place]. This disclosure is being madepursuant to the Care Everywhere program and may not contain all information available regarding this patient. Last updated 18.[facility] Medications * Be aware that medications may [...] Date Diagnosed Date Calculus of kidney 09/18/2016 Social History Tobacco Use Types Packs/Day Years [...] 09/18/2016 2:24 PM CDT Plan of Treatment Not on file Care Teams Portable Canteen Operator Relationship Specialty Start Date End Date Caio Yanez MD [address] [facility] [address] [id number] PCP - General 09/08/08
--- OUTSIDE RECORDS SUMMARY | 2024-12-29 15:24 | XMS_ITS | Patient Health Summary ---
Author Organization [facility] Address [address] [place] [address] Care Team Providers Care Civilian Technician Name Role Phone Caio Yanez MD Primary Care Provider [phone] Note from [facility],non-owned Affiliates and Associated Physician Practices is amultiple site organization consisting of ambulatory clinics and hospital sitesin [place], [place], [place] and [place]. This disclosure is being madepursuant to the Care Everywhere program and may not contain all information available regarding this patient. Last updated 18.[facility] Medications * Be aware that medications may not be up to date on this document. Alwaysverify current medications with the patient. * simvastatin (ZOCOR) 10 MG tablet(Started 08/31/2016) 1 refill left * betamethasone dipropionate (DIPROSONE) 0.05 % cream(Started 08/28/2016) * lisinopril (PRINIVIL; ZESTRIL) 20 MG tablet(Started 08/30/2016) Take 20 mg by mouth DAILY. 5 refills left * clotrimazole (LOTRIMIN AF) 1 % cream(Started 08/28/2016) Active Problems Problem Noted Date Diagnosed Date [...] Mass Index 36.64 09/18/2016 2:24 PM CDT Procedures * CT ABDOMEN PELVIS WO CONTRAST(Performed 09/30/2016) * XR ABDOMEN KUB(Performed 09/18/2016) * URINALYSIS AUTO - POINT OF CARE (AMB) [facility](Performed 09/18/2016) Results * CT ABDOMEN PELVIS WO CONTRAST (09/30/2016 6:15 AM LOAN CONSULTANT) Anatomical Region Laterality Modality Abdomen, Pelvis Other Impressions 09/30/2016 4:43 PM LOAN CONSULTANT IMPRESSION: 1. Punctate 1 to 2 mm nonobstructive nephrolithiasis. 2. Numerous granulomas involving the lung bases. Additional noncalcified nodules measuring up to 5 mm in the right middle lobe also likely represent granulomas; however, follow-up in 12 months if the patient is low risk or, in 6-12 months if the patient is high risk is recommended according to Fleischner criteria. Report dictated by Fito Bennett M.D. (resident). This report was approved by Fito Bennett M.D. on 09/30/2016 10:10 AM . I, Dr. MARCIN ERAZO M.D. have personally reviewed and interpreted this examination/study. This report was electronically signed by MARCIN ERAZO M.D. on 09/30/2016 4:43 PM . Narrative 09/30/2016 4:43 PM LOAN CONSULTANT EXAMINATION: Computed tomography of the abdomen and pelvis without contrast HISTORY: Left flank pain TECHNIQUE: Computed tomography of the abdomen and pelvis was performed without contrast according to standard protocol. FINDINGS: No prior study is available for comparison. Numerous granulomas are seen in the visualized lung bases. Other tiny 2 to 3 mm noncalcified pulmonary nodules, as well as a 5 mm right middle lobe noncalcified nodule, are indeterminate but most likely are also secondary to granulomatous disease. Calcified hilar lymph nodes are evidence of old, healed granulomatous disease. The heart size is normal without pericardial effusion. Lack of intravenous contrast limits evaluation of the solid intra-abdominal organs. The liver is within normal limits. No focal lesion is identified. The gallbladder is contracted and. No intrahepatic or extrahepatic biliary ductal dilatation is seen. The pancreas is normal. The spleen is normal. The adrenal glands are normal. Other than a subcentimeter right inferior pole exophytic cyst and a right upper pole 1.4 cm cystic lesion, the kidneys are within normal limits for a noncontrast exam. There are at least 2 tiny 1 to 2 mm right and a single left nonobstructive nephrolithiasis. No hydronephrosis or hydroureter is seen.. The small and large bowel are normal in caliber and without evidence of obstruction. The right lower quadrant appendix is normal. No free intraperitoneal air or free fluid is identified. Subcentimeter mesenteric and retroperitoneal lymph nodes are present, as well as paige hepatis lymph nodes. The unenhanced abdominal aorta is normal in course and caliber. The urinary bladder is normal. The prostate is seen. No free pelvic fluid is seen. There is a small fat-containing right inguinal hernia. Bone windows demonstrate no suspicious lytic or blastic lesions. Multilevel degenerative changes are present. Procedure Note Marcin Erazo MD - 02/13/2018 EXAMINATION: Computed tomography of the abdomen and pelvis withoutcontrast HISTORY: Left flank pain TECHNIQUE: Computed tomography of the abdomen and pelvis was performedwithout contrast according to standard protocol. FINDINGS: No prior study is available for comparison. Numerous granulomas are seen in the visualized lung bases. Other tiny 2 to3 mm noncalcified pulmonary nodules, as well as a 5 mm right middle lobenoncalcified nodule, are indeterminate but most likely are also secondaryto granulomatous disease. Calcified hilar lymph nodes are evidence of old, healed granulomatousdisease. The heart size is normal without pericardial effusion. Lack of intravenous contrast limits evaluation of the solidintra-abdominal organs. The liver is within normal limits. No focal lesionis identified. The gallbladder is contracted and. No intrahepatic orextrahepatic biliary ductal dilatation is seen. The pancreas is normal. The spleen is normal. The adrenal glands arenormal. Other than a subcentimeter right inferior pole exophytic cyst tawanna right upper pole 1.4 cm cystic lesion, the kidneys are within normallimits for a noncontrast exam. There are at least 2 tiny 1 to 2 mm right and a single left nonobstructivenephrolithiasis. No hydronephrosis or hydroureter is seen.. The small and large bowel are normal in caliber and without evidence ofobstruction. The right lower quadrant appendix is normal. No freeintraperitoneal air or free fluid is identified. Subcentimeter mesentericand retroperitoneal lymph nodes are present, as well as paige hepatis lymph nodes. The unenhanced abdominal aorta is normal in course and caliber. The urinary bladder is normal. The prostate is seen. No free pelvic fluidis seen. There is a small fat-containing right inguinal hernia. Bone windows demonstrate no suspicious lytic or blastic lesions.Multilevel degenerative changes are present. IMPRESSION IMPRESSION: 1. Punctate 1 to 2 mm nonobstructive nephrolithiasis. 2. Numerous granulomas involving the lung bases. Additional noncalcifiednodules measuring up to 5 mm in the right middle lobe also likelyrepresent granulomas; however, follow-up in 12 months if the patient islow risk or, in 6-12 months if the patient is high risk is recommended according to Fleischner criteria. Report dictated by Fito Bennett M.D. (resident). This report was approved by Fito Bennett M.D. on 09/30/2016 10:[address] MARCIN Beyer M.D. have personally reviewed and interpreted thisexamination/study. This report was electronically signed by MARCIN ERAZO M.D. on09/30/2016 4:43 PM . Lia Mac MD CT ORDERABLE S * XR ABDOMEN KUB (09/18/2016 4:02 PM CDT) Anatomical Region Laterality Modality Abdomen Other Impressions 09/19/2016 9:39 AM CDT IMPRESSION: No radiographic evidence of nephrolithiasis. Consider renal stone protocol CT if clinically indicated. Report dictated by Sujey Floyd M.D. I, Dr. STEPHEN HUEBNER, MD have personally reviewed and interpreted this examination/study. This report was electronically signed by NORRIS SANTANA MD on 09/19/2016 9:39 AM . Narrative 09/19/2016 9:39 AM CDT EXAM: Abdomen, AP supine view HISTORY: nephrolithiasis COMPARISON: None available FINDINGS: The diaphragm is not fully imaged. No dilated loops of small or large bowel are identified to suggest bowel obstruction. No pathologic calcifications are seen. The visible osseous structures are intact. Procedure Note Norris Santana MD - 02/13/2018 EXAM: Abdomen, AP supine view HISTORY: nephrolithiasis COMPARISON: None available FINDINGS: The diaphragm is not fully imaged. No dilated loops of small or largebowel are identified to suggest bowel obstruction. No pathologiccalcifications are seen. The visible osseous structures are intact. IMPRESSION IMPRESSION: No radiographic evidence of nephrolithiasis. Consider renal stone protocol CT if clinically indicated. Report dictated by Sujey Floyd M.D. I, Dr. NORRIS SANTANA MD have personally reviewed and interpreted thisexamination/study. This report was electronically signed by NORRIS SANTANA MD on 09/19/20169:39 AM . Lia Mac MD DIAGNOSTIC I MAGING ORDERABLES * (ABNORMAL) URINALYSIS AUTO - POINT OF CARE (AMB) [facility] (09/18/2016 2:36 PM CDT) Glucose UA neg [facility] Bilirubin UA POCT neg [facility] Ketones UA POCT neg [facility] Specific [place] UA 1.030 [facility] Blood Urine POCT 25(A) [facility] pH UA 5.5 [facility] Protein UA neg [facility] Urobilinogen UA 3.5 [facility] Nitrite UA neg [facility] WBC UA neg [facility] Urine specimen (specimen) 09/18/2016 2:36 PM CDT Lia Mac MD LAB - POINT OF CARE ORDERABLES [facility] Care Teams Civilian Technician Relationship Specialty Start Date End Date Caio Yanez MD [facility] [address] [place] [phone] PCP - General 09/08/08
[2024-12-29 15:26] VITALS: BP 125/67; PULSE 90; RESP 16; TEMP 36.4; O2SAT 97
--- NOTE | 2024-12-29 16:44 | ED.GENADULT ---
HPI - General Adult General Chief complaint: Extremity Injury, Lower Stated complaint: RIGHT knee injury x2d Focused HPI: Chilo Mcintyre is a 64 y/o male who presents today with reports of feeling something pop in his right knee 2 days ago and now having continued pain to his medial right knee. Pain is worse with ambulation, No obvious swelling / erythema/ecchymosis noted to knee/ no known trauma or injury GENERAL: Well-appearing, well-nourished, and in no acute distress. HEAD: Normocephalic, atraumatic. CHEST: Clear to auscultation. ?No respiratory distress. HEART: Regular rate and rhythm.? NEURO: ?Alert and oriented x3. Patient screened in triage and initial orders placed.? ?Additional care and disposition to be based upon?diagnostic testing and treatment. History of Present Illness HPI narrative: Chilo Mcintyre is a 64 y/o male who presents today with reports of feeling something pop in his right knee 2 days ago and now having continued pain to his medial right knee. Pain is worse with ambulation, No obvious swelling / erythema/ecchymosis noted to knee/ no fall / injruy or trauma Related Data Home Medications ?Medication ?Instructions ?Recorded ?Confirmed ?Last Taken ?Type lisinopril 20 mg tablet 20 mg PO DAILY 02/22/21 03/28/21 Unknown History metoprolol succinate 25 mg 25 mg PO DAILY 02/22/21 03/28/21 Unknown History tablet,extended release 24 hr simvastatin 20 mg tablet 20 mg PO HS 02/22/21 03/28/21 Unknown History ergocalciferol (vitamin D2) 1,250 1,250 mcg PO WEEKLY 03/27/21 03/28/21 Unknown History mcg (50,000 unit) capsule Allergies Allergy/AdvReac Type Severity Reaction Status Date / Time No Known Allergies Allergy Verified 03/28/21 10:12 Review of Systems Review of Systems: All systems reviewed & are unremarkable except as noted in HPI and below PMFSH Past Medical History Medical History Obesity Prediabetes Bilateral kidney stones Hyperlipidemia Hypertension Surgical History Surgical History History of bilateral inguinal hernia repair Status post open reduction with internal fixation of fracture (~2017) Left tib-fib fracture S/P cystoscopy with ureteral stent placement (~2019) X2 Family History Family History Mother , Around age 75 Diabetes mellitus Thyroid disease Father , Around age 75 Diabetes mellitus COPD (chronic obstructive pulmonary disease) Social History Social History Social History: The patient and his her currently . He still goes over to their house and watches his 15-year-old daughter. He also has 2 other biologic children ages 40 and 32. He also has a stepson who was 24. He is employed at [employer]. He has had intermittent tobacco use since he was a teenager. He reports that he has never smoked more than a half a pack of cigarettes a day. He states that he is currently quit smoking but is vague as to when he last smoked. He drinks 3-4 alcoholic beverages a week. Years smoked: 5 Smoking status: Former smoker Smoking end date: 11/16/08 Alcohol intake: current Drinks per week: 2 Alcohol use details: He drinks 3-4 alcoholic beverages a week but will go intervals without drinking for a month or so. Substance use: never Substance use type: does not use Living arrangements: with family Gender identity (if verbalized by the patient): Male Spiritual care concerns: No Exam Narrative: GENERAL: Well-appearing, well-nourished, and in no acute distress. HEAD: Normocephalic, atraumatic. EYES: PERRLA and EOMI. ENT: Nares clear, no rhinorrhea or epistaxis. Mucous membranes moist. Oropharynx without tonsillar hypertrophy exudate or other lesions. Bilateral TMs pearly cruz nonbulging NECK: Supple. No adenopathy or masses. No carotid bruits or JVD CHEST: Clear to auscultation. No respiratory distress. No wheezes rales or rhonchi HEART: Regular rate and rhythm. No murmur heard. Normal peripheral pulses. EXTREMITIES: Normal range of motion. No edema. SKIN: Warm, dry, no rash. NEURO: No focal deficits. Alert and oriented x3. PSYCH: Normal mood and affect. Course Vital Signs Vital signs: Vital Signs Temperature 36.4 C 12/29/24 15:26 Pulse Rate 90 12/29/24 15:26 Respiratory Rate 16 02/13/25 15:26 Blood Pressure 125/67 12/29/24 15:26 Pulse Oximetry 97 12/29/24 15:26 Oxygen Delivery Room Air 12/29/24 15:26 Temperature 36.4 C 12/29/24 15:26 Pulse Rate 90 12/29/24 15:26 Respiratory Rate 16 12/29/24 15:26 Blood Pressure 125/67 12/29/24 15:26 Pulse Oximetry 97 12/29/24 15:26 Oxygen Delivery Room Air 12/29/24 15:26 Medical Decision Making MDM Narrative Medical decision making narrative: 64-year-old male who presents with complaints of having right medial knee pain this started 2 days ago after he heard a pop. He denies any trauma no injury. There is no swelling, no erythema, no ecchymosis, range of motion is intact no bony tenderness noted on exam. X-ray showing osteoarthritis. Concern for arthritic pain versus ligament tendon injury plan to patient in an Hardik wrap discharge to [facility] with orthopedic follow-up. This consisted of the patient and he is agreeable to this denies having any further questions. Medical Records Medical records reviewed: Yes I reviewed the external patient's medical records. Vital Signs Vital Signs: Vital Signs Temperature 36.4 C 12/29/24 15:26 Pulse Rate 90 12/29/24 15:26 Respiratory Rate 16 12/29/24 15:26 Blood Pressure 125/67 12/29/24 15:26 Pulse Oximetry 97 12/29/24 15:26 Oxygen Delivery Room Air 12/29/24 15:26 Temperature 36.4 C 12/29/24 15:26 Pulse Rate 90 12/29/24 15:26 Respiratory Rate 16 12/29/24 15:26 Blood Pressure 125/67 12/29/24 15:26 Pulse Oximetry 97 12/29/24 15:26 Oxygen Delivery Room Air 12/29/24 15:[address] Imaging Data Radiologist's impression: Impressions Knee X-Ray 12/29/24 15:56 IMPRESSION: 1. Mild right knee osteoarthritis. Discharge Plan Discharge Clinical Impression: Acute knee pain Patient Disposition: Home, Self-Care Condition: Stable Instructions: Antibiotic Form Additional Instructions: continue to wear the hardik wrap Rest/ Elevate/ Ice 20 mins at a time You may take Tylenol for pain Follow up with orthopedics as discussed If you develop any worsening symptoms or concerns return to the ER. Patient Language: Faroese Prescriptions: No Action metformin 500 mg tablet 500 mg PO BID Qty: 60 0RF ergocalciferol (vitamin D2) 1,250 mcg (50,000 unit) capsule 1,250 mcg PO WEEKLY Patient Comments: PT TAKES ON MONDAYS hydrocodone-acetaminophen 5-325 mg tablet 1 - 2 tablet PO Q6H PRN (Reason: pain) Qty: 20 0RF cephalexin 500 mg capsule 500 mg PO Q8H Qty: 9 0RF metoprolol succinate 25 mg Tablet Extended Release 24 Hr 25 mg PO DAILY lisinopril 20 mg Tablet 20 mg PO DAILY simvastatin 20 mg Tablet 20 mg PO HS Follow-up/Referrals: Rodrigue Rodríguez MD [Physician] - 3 Days Vikash Corona MD [Primary Care Provider] - Time of Disposition: 16:52
[2024-12-29] MEDS: HYDROcodone/acetaminophen (*CRX) 5-325 MG TABLET 1 TAB PO (16:59)
--- OUTSIDE RECORDS SUMMARY | 2024-12-29 17:10 | XMS_ITS | Clinical Summary ---
Author Organization [email or web address] Address [address] [place] [address] Care Team Providers Care Payroll Benefits Administrator Name Role Phone Caio Yanez MD Primary Care Provider [phone] Source Comments [email or web address],non-owned Affiliates and Associated Physician Practices is amultiple site organization consisting of ambulatory clinics and hospital sitesin [place], [place], [place] and [place]. This disclosure is being madepursuant to the Care Everywhere program and may not contain all information available regarding this patient. Last updated 18.[email or web address] Medications * Be aware that medications may [...] age to complete this topic Care Teams Payroll Benefits Administrator Relationship Specialty Start Date End Date Caio Yanez MD [address] [facility] [address] [phone] PCP - General 09/08/08
--- OUTSIDE RECORDS SUMMARY | 2024-12-29 17:10 | XMS_ITS | Clinical Summary ---
Author Organization [facility] Address [address] [place] [address] Care Team Providers Care Research Project Coordinator Name Role Phone Kahlil Tucker MD Unavailable [phone] None, Provider Primary Care Provider Unavaila ble Allergies No known active allergies Medications LISINOPRIL 40 MG tablet TAKE 1 TABLET BY MOUTH EVERY DAY 30 tablet 6 08/18/2019 Active metoprolol succinate ER 25 MG 24 hr tablet Take 1 tablet (25 mg total) by mouth daily. 30 tablet 6 08/18/2019 Active simvastatin 10 MG tablet Take 1 tablet (10 mg total) by mouth nightly at bedtime. 90 tablet 1 10/31/2019 Active HYDROcodone-perico taminophen (NORCO) 5-325 MG tabletIndicatio ns:Acute Pain < 3 Day Supply Take 1 tablet by mouth every 6 (six) hours as needed for Pain. Indications: Acute Pain < 3 Day Supply 5 tablet 02/11/2023 Active Active Problems Patient Care Coordination No te Formatting of this note migh t be different from the original. PT precautions: HTN, hernia repair, right knee and left shoulder arthroscopy. Problem Noted Date Diagnosed Date HAMMER (dyspnea on exertion) 04/04/2019 Morbid obesity (CMS/HCC HHS/HCC) 04/04/2019 Dyslipidemia 02/14/2019 Posterior tibial tendinitis, left leg 01/26/2019 Ankle fracture, bimalleolar, closed, left, with routine healing, subsequent encounter 10/27/2018 Closed left ankle fracture 10/12/2018 Closed fracture of left ankle, initial encounter 10/06/2018 Tachyarrhythmia 07/27/2018 ANGELA on CPAP 07/27/2018 Hyperlipemia Coronary artery disease Essential hypertension Palpitations Resolved Problems Problem Noted Date Diagnosed Date Resolved Date Surgical followup 12/29/2018 07/27/2020 Family History Medical History Relation Comments Diabetes Father Diabetes Mother Heart Disease Mother Heart Attack Sister 2 Stent Cardiac Sister 2 Stroke Sister 2 Relation Status Comments Brother 1 Brother 2 Daughter 1 Alive Daughter 2 Alive Father Mother Paternal Grandfather Paternal Grandmother Sister 1 Sister 2 Son Alive Social History Tobacco Use Types Packs/Day Years Used Date Smoking Tobacco: Former Cigarettes 0.3 2 0 03/14/2004 - 03/14/2006 Cigars Smokeless Tobacco: Never Alcohol Use Standard Drinks/Week Comments Yes 0 (1 standard drink = 0.6 oz pur e alcohol) ocassional AUDIT-C Answer Date Recorded Frequency of Alcohol Consumption Monthly or less 06/06/2019 Average Number of Drinks Not on file 019 Frequency of Binge Drinking Not on file 05/17 Sex and Gender Information Value Date Recorded Sex Assigned at Not on file Legal Sex Male 5:00 PM CDT Gender Identity Not on file Sexual Orientation Not on file 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 Not on file Not on file Not on file Last Filed Vital Signs Vital Sign Reading Time Taken Comments Blood Pressure 155/101 02/11/2023 10:00 AM CDT Pulse 76 02/11/2023 8:41 AM CDT Temperature 36.7 C (98.1 F) 02/11/2023 8:41 AM CDT Respiratory Rate 18 02/11/2023 8:41 AM CDT Oxygen Saturation 95% 02/11/2023 10:00 AM CDT Inhaled Oxygen Concentration - - Weight 98.4 kg (217 lb) 02/11/2023 8:41 AM CDT Height 172.7 cm (5' 8 ) 02/11/2023 8:41 AM CDT Body Mass Index 32.99 02/11/2023 8:41 AM CDT Plan of Treatment Health Maintenance Due Date Last Done Comments ASCVD Statin 1962 Colorectal Cancer Screening Colonoscopy (10 Years) 1962 Annual Physical 1965 Pneumococcal Vaccine: Pediat rics (0 to 5 Years) and At-Risk Patients (6 to 64 Years) (1 of 2 - PCV) 1968 Hepatitis C 1980 DTaP, Tdap and Td Vaccines ( 1 - Tdap) 1981 Zoster Vaccines (1 of 2) 2012 ASCVD LDL 02/29/2020 02/28/2019 RSV Immunization or 60+ Years (1 - Risk 60-74 years 1-dose series) 2022 COVID-19 Vaccine (1 - 2023-2 5 season) 2024 Influenza Adult (#1) 2024 Meningococcal B Vaccine Aged Out No l onger eligible based on patient's age to complete this topic Meningococcal Vaccine Aged Out No jenny frank eligible based on patient's age to complete this topic RSV Immunizations Under 20 Months Aged Out No longer eligible based on patient's age to complete this topic Medical Devices Implanted Type Area System Dispatcher Device Identifier Shelf Expiration Date Model / Serial / Lot Arthex Locking Straight Plate Implanted:Qty: 1 on 10/12/2018 by Andrea Saleem MD at [facility] Left: Ankle [employer] [id number]-10 / / [id number] Description:No expiration da te/lot numbers, implants from [employer] Tray 3 Mm Low Profile Screw Nonlock-Cancell ous Implanted:Qty: 1 on 10/12/2018 by Andrea Saleem MD at [facility] Left: Ankle [employer] AR-8830-18 / / [id number] Description:No lot number/ e xpiration date implants from [employer] Tray 3.5mm Low Profile Acrew Non Locking Cortical Implanted:Qty: 1 on 10/12/2018 by Andrea Saleem MD at [facility] Left: Ankle [employer] AR-8835-14 / / [id number] 3.5mm Low Profile Screw Non Locking Cortical Implanted:Qty: 2 on 10/12/2018 by Andrea Saleem MD at [facility] Left: Ankle [employer] AR-8835-16 / / [id number] / [id number] 3.5mm Low Profile Screw Locking Implanted:Qty: 3 on 10/12/2018 by Andrea Saleem MD at [facility] Left: Ankle [employer] AR-8835L-14 / / [id number] / [id number] / [id number] 3.5mm Low Profile Screw Locking Implanted:Qty: 1 on 10/12/2018 by Andrea Saleem MD at [facility] Left: Ankle [employer] AR-8835L-16 / / [id number] 4mm Low Profile Screw Lonf Thread Mohan Implanted:Qty: 2 on 10/12/2018 by Andrea Saleem MD at [facility] Left: Ankle [employer] [id number] / / [id number] Explanted Type Area System Dispatcher Device Identifier Shelf Expiration Date Model / Serial / Lot 3.5mm Low Profile Non Locking Cortical Screw Explanted:Qty: 1 on 10/12/2018 at [facility] Left: Ankle [employer] AR-8835-18 / / [id number] Description:WRONG SIZE Procedures Procedure Name Priority Date/Time Associated Diagnosis Comments LIPID PANEL Routine 02/28/2019 8:48 AM CDT Dyslipidemia from Last 3 Months or Most Recently Relevant to Health Maintenance Results * (ABNORMAL) LIPID PANEL (02/28/2019 8:48 AM CDT) CHOLESTEROL 163 <200 MG/DL 02/28/2019 10:[address] [facility] TRIGLYCERIDES 47 <150 MG/DL 02/28/2019 10:[address] [facility] HDL 51 >40.0 MG/DL 02/28/2019 10:[address] [facility] LDL (CALCULATED) 103(H) <100 MG/DL 02/28/2019 10:[address] [facility] NON HDL CHOLESTEROL 112 <130 MG/DL 02/28/2019 10:[address] [facility] CHOL/HDL RATIO 3.2 0.0 - 4.5 02/28/2019 10:[address] [facility] VLDL CALCULATION 9 5 - 55 MG/DL 02/28/2019 10:[address] [facility] LIPID INTERPRETATION 02/28/2019 10:[address] [facility] Comment: [facility] CONCENSUS REPORT RECOMMENDATIONS: ADULT CHILD LOW RISK: CHOLESTEROL <200 <170 TRIGLYCERIDE <150 --- HDL >=60 --- LDL <100 <110 BORDERLINE: CHOLESTEROL 200-239 170-199 TRIGLYCERIDE 150-199 --- HDL 40-59 --- LDL 100-159 110-129 HIGH RISK: CHOLESTEROL >=240 >=200 TRIGLYCERIDE >=200 --- HDL <40 --- LDL >=160 >=130 02/28/2019 8:48 AM CDT Stacy Rockwell PLANT ASSIGNER-C LABORATORY Final Re sult Performing Organization Address City/State/[facility] Co de Phone Number [facility] [address] [place] [address], from Last 3 Months or Most Recently Relevant to Health Maintenance Insurance [facility] Advance Directives * Full Code (Latest Code Status on File) Date Activated Date Inactivated Comments 10/12/2018 5:11 PM 10/13/2018 4:20 PM Care Teams Research Project Coordinator Relationship Specialty Start Date End Date None, Provider, PCP - General UNKNOWN PHYSICIAN SPECIALTY 02/11/23 Kahlil Tucker MD [facility]. [address] [place], [place] [address] Yulan Assembler Installer General CARDIOVASCULAR DISEASE 05/13/18
--- OUTSIDE RECORDS SUMMARY | 2024-12-29 17:10 | XMS_ITS | Patient Health Summary ---
Author Organization [facility] Address [address] [place] [address] Care Team Providers Care Steam Conditioner Filling Name Role Phone Caio Yanez MD Primary Care Provider [phone] Note from [facility],non-owned Affiliates and Associated Physician Practices is amultiple site organization consisting of ambulatory clinics and hospital sitesin [place], [place], [place] and [place]. This disclosure is being madepursuant to the Care Everywhere program and may not contain all information available regarding this patient. Last updated 18.[facility] Medications * Be aware that medications [...] ABDOMEN PELVIS WO CONTRAST (09/30/2016 6:15 AM ATMOSPHERIC SCIENTIST) Anatomical Region Laterality Modality Abdomen, Pelvis Other Impressions 09/30/2016 4:43 PM ATMOSPHERIC SCIENTIST IMPRESSION: 1. Punctate 1 to 2 mm [...] 4:43 PM . Narrative 09/30/2016 4:43 PM ATMOSPHERIC SCIENTIST EXAMINATION: Computed tomography of the abdomen and [...] (09/18/2016 2:36 PM CDT) Glucose UA neg [facility] Bilirubin UA POCT neg [facility] Ketones UA POCT neg [facility] Specific [place] UA 1.030 [facility] Blood Urine POCT 25(A) [facility] pH UA 5.5 [facility] Protein UA neg [facility] Urobilinogen UA 3.5 [facility] Nitrite UA neg [facility] WBC UA neg [facility] Urine specimen (specimen) 09/18/2016 2:36 PM CDT Lia Mac MD LAB - POINT OF CARE ORDERABLES [facility] Care Teams Steam Conditioner Filling Relationship Specialty Start Date End Date Caio Yanez MD [facility] [address] [place] [phone] PCP - General 09/08/08
--- OUTSIDE RECORDS SUMMARY | 2024-12-29 17:10 | XMS_ITS | Referral Summary ---
Author Organization [facility] [employer] Address [address] [place] [address] Care Team Providers Care Set Up Mechanic Crown Assembly Machine Name Role Phone Caio Yanez MD Primary Care Provider [phone] Source Comments [facility] [employer],non-owned Affiliates and Associated Physician Practices is amultiple site organization consisting of ambulatory clinics and hospital sitesin [place], [place], [place] and [place]. This disclosure is being madepursuant to the Care Everywhere program and may not contain all information available regarding this patient. Last updated 18.[facility] [employer] Medications * Be aware that medications may [...] of Treatment Not on file Care Teams Set Up Mechanic Crown Assembly Machine Relationship Specialty Start Date End Date Caio Yanez MD [address] [facility] [address] [phone] PCP - General 09/08/08
== END 2024-12-29 18:17 | disposition home or self-care (01) ==
LOC: ANHED 17:08
PROVIDERS: Emergency Provider Nurse Practitioner Family; PCP Emergency Medicine
DX: M25.561 Pain in right knee (principal); E78.5 Hyperlipidemia, unspecified; I10 Essential (primary) hypertension; R73.03 Prediabetes; E66.9 Obesity, unspecified; Z68.36 Body mass index [BMI] 36.0-36.9, adult; Z87.891 Personal history of nicotine dependence; Z87.442 Personal history of urinary calculi; Z79.84 Long term (current) use of oral hypoglycemic drugs; Z79.899 Other long term (current) drug therapy
CPT/HCPCS: 73564; 99283; A9270

== ENCOUNTER 2025-01-24 08:54 | Outpatient (CLI) | payer MEDICAID, SELFPAY ==
--- NOTE | ~2025-01-24 | MR_ITS ---
MRI of the right knee Clinical history: Injury Technique: Coronal proton density and proton density-weighted images, sagittal proton-density and T2 fat-sat images, and axial proton-density fat-saturated images were acquired. Findings: Anterior and posterior cruciate ligaments are intact. Medial collateral ligament and the la teral collateral ligament complex are intact. Popliteus tendon is intact. There is horizontal tear involving the body segment of the medial meniscus, extending to the posterio r horn. No lateral meniscal tear seen. There is focal high-grade chondromalacia the medial joint line with focal subchondral reactive marrow edema. Remaining articular cartilage in these well-preserved. Extensor mechanism is intact. No significant joint effusion or Erickson's cyst. Impression: Horizontal tear of the body segment of the medial meniscus extending into the posterior horn. High-grade chondromalacia the medial joint line with reactive marrow edema. Reviewed, dictated and finalized at [facility]. Impression: Horizontal tear of the body segment of the medial meniscus extending into the p osterior horn. High-grade chondromalacia the medial joint line with reactive marrow edema.
--- OUTSIDE RECORDS SUMMARY | 2025-01-24 09:30 | XMS_ITS | Clinical Summary ---
Author Organization [facility] [employer] Address [address] [address] Care Team Providers Care Ornamental Rail Installer Name Role Phone Caio Yanez MD Primary Care Provider [phone] Source Comments [facility] [employer],non-owned Affiliates and Associated Physician Practices is amultiple site organization consisting of ambulatory clinics and hospital sitesin [place], [place], [place]. This disclosure is being madepursuant to the Care Everywhere program and may not contain all information available regarding this patient. Last updated 18.[facility] [employer] Medications * Be aware that medications may [...] age to complete this topic Care Teams Ornamental Rail Installer Relationship Specialty Start Date End Date Caio Yanez MD [address] [facility] [address] [phone] PCP - General 09/08/08
--- OUTSIDE RECORDS SUMMARY | 2025-01-24 09:30 | XMS_ITS | Referral Summary ---
Author Organization [facility] [employer] Address [address] [facility] [place] [address] Care Team Providers Care Family Dentist Name Role Phone Caio Yanez MD Primary Care Provider [phone] Source Comments [facility] [employer],non-owned Affiliates and Associated Physician Practices is amultiple site organization consisting of ambulatory clinics and hospital sitesin [place], [place], [place] and [place]. This disclosure is being madepursuant to the Care Everywhere program and may not contain all information available regarding this patient. Last updated 18.[facility] [employer] Medications * Be aware that medications may [...] of Treatment Not on file Care Teams Family Dentist Relationship Specialty Start Date End Date Caio Yanez MD [address] [facility] [address] [phone] PCP - General 09/08/08
--- OUTSIDE RECORDS SUMMARY | 2025-01-24 09:30 | XMS_ITS | Patient Health Summary ---
Author Organization [facility] Address [address] [address] Care Team Providers Care Splicer Helper Name Role Phone Caio Yanez MD Primary Care Provider [phone] Note from [facility],non-owned Affiliates and Associated Physician Practices is amultiple site organization consisting of ambulatory clinics and hospital sitesin [place], [place], [place] and [place]. This disclosure is being madepursuant to the Care Everywhere program and may not contain all information available regarding this patient. Last updated 18.[facility] Medications * Be aware that medications may [...] ABDOMEN PELVIS WO CONTRAST (09/30/2016 6:15 AM EDGE STITCHER) Anatomical Region Laterality Modality Abdomen, Pelvis Other Impressions 09/30/2016 4:43 PM EDGE STITCHER IMPRESSION: 1. Punctate 1 to 2 mm [...] 4:43 PM . Narrative 09/30/2016 4:43 PM EDGE STITCHER EXAMINATION: Computed tomography of the abdomen and [...] CT if clinically indicated. Report dictated by uSjey Floyd M.D. I, Dr. NORRIS SANTANA MD have personally reviewed and interpreted thisexamination/study. This report was electronically signed by NORRIS SANTANA MD on 09/19/20169:39 AM . Lia Mac MD DIAGNOSTIC I MAGING ORDERABLES * (ABNORMAL) URINALYSIS AUTO - POINT OF CARE (AMB) [facility] (09/18/2016 2:36 PM CDT) Glucose UA neg [facility] Bilirubin UA POCT neg [facility] Ketones UA POCT neg [facility] Specific [place] UA 1.030 [facility] Blood Urine POCT 25(A) [facility] pH UA 5.5 [facility] Protein UA neg [facility] Urobilinogen UA 3.5 [facility] Nitrite UA neg [facility] WBC UA neg [facility] Urine specimen (specimen) 09/18/2016 2:36 PM CDT Lia Mac MD LAB - POINT OF CARE ORDERABLES [facility] Care Teams Splicer Helper Relationship Specialty Start Date End Date Caio Yanez MD [facility] [address] [place] [address] [place] [phone] PCP - General 09/08/08
--- OUTSIDE RECORDS SUMMARY | 2025-01-24 09:31 | XMS_ITS | CONTINUITY OF CARE DOCUMENT ---
Author Name nick romero Address Unknown Organization [facility] Address [id number] [place] [address] [address] [place] [address] Phone [phone] Care Team Providers Care Pot Press Operator Name Role Phone Rakesh Haney MD Unavailable [phone] Rakesh Haney MD Unavailable [phone] PROBLEMS Condition Status Date Provider Notes Obesity active Flaquito Isbell MD Tobacco use, quit active Flaquito Isbell MD t oo remote to screen Screening active Flaquito Isbell MD Diabetes mellitus, type 2 active Flaquito au MD Exposure to SARS-associated coronavirus;had vaccine active Flaquito Isbell MD Hyperlipidemia active Flaquito Isbell MD HTN essential active Flaquito Isbell MD SLEEP APNEA;on rx active Flaquito Isbell MD CAD active Flaquito Isbell MD abnl nuc Cardiology examination active Сергей Dominguez ENCOUNTERS Date Type Provider Location Encounter Diag nosis - In-person encounter Office Visit Johnny Waldrop MD [facility] - In-person encounter Office Visit Rakesh Haney MD [facility] - In-person encounter Office Visit Rakesh Haney MD [facility] - In-person encounter Office Visit Rakesh Haney MD [facility] Cardiology examination - In-person encounter Office Visit Flaquito Isbell MD [facility] ObesityTobacco use, quitScreeningDiabetes mellitus, type 2Exposure to SARS-associated coronavirus;had vaccineHyperlipidemiaHTN essentialSLEEP APNEA;on rxCAD VITAL SIGNS Date Observation Value Provider Body Mass Index (Ratio) 35.12 kg/m2 Gabe Waldrop MD blood pressure, diastolic 74 mm[Hg] Ashly rubio [facility] blood pressure, systolic 119 mm[Hg] Kita dixon [facility] oxygen saturation, oximetry 94 % [facility] 14 /min [facility] pulse [facility] 103 /min [facility] weight E&M 231 [lb_av] Alberta [facility] height E&M 68 [in_i] [facility] blood pressure, cuff size regular An joanne [facility] blood pressure, cuff size regular Alden pickens [facility] blood pressure, diastolic 73 mm[Hg] Alden pickens [facility] blood pressure, systolic 113 mm[Hg] Ana Maria membreno [facility] oxygen saturation, oximetry 94 % Maylin [facility] pulse rate 74 /min [facility] height E&M 68 [in_i] [facility] Body [facility] Index (Ratio) 35.64 kg/m2 Cruzito Honeycutt blood pressure, diastolic 76 mm[Hg] Tay hill [place] blood pressure, systolic 112 mm[Hg] Maira ahuja [place] blood pressure, cuff size regular Tay liz [place] oxygen saturation, oximetry 96 % [facility] [place] pulse rate 63 /min Tayaron [facility] weight E&M 234.4 [lb_av] Tayaron Dyson height E&M 68 [in_i] [facility] Body Mass Index (Ratio) 35.48 kg/m2 Giuseppe davis Alberto blood pressure, diastolic 90 mm[Hg] Tay hill [facility] blood pressure, systolic 131 mm[Hg] Maira ahuja [facility] blood pressure, cuff size regular Tay hill [facility] oxygen saturation, oximetry 97 % [facility] pulse rate 59 /min [facility] weight E&M 233.4 [lb_av] [facility] height E&M 68 [in_i] [facility] Body Mass Index (Ratio) 41.17 kg/m2 Jay Isbell MD blood pressure, diastolic 96 mm[Hg] Gabrielle nkLog blood pressure, systolic 148 mm[Hg] Nisa kLogic blood pressure, cuff size regular Maurice bocanegra Benigno blood pressure, diastolic 96 mm[Hg] Maurice isjose [facility] blood pressure, systolic 148 mm[Hg] Mauricei stkristine Benigno blood pressure, resting Yes [facility] 81 /min Shania Benign[facility] oxygen saturation, oximetry 98 % [facility] 19 /min [facility] weight E&M 270.8 [lb_av] Shania Benigno height E&M 68 [in_i] Shania Benigno ALLERGIES No Known Drug Allergies RESULTS Date Observation Value Provider Reference Range Interpretat ion Location pro brain natriuretic peptide 31 pg/mL LinkLogic [id number] HISTORY OF MEDICATION USE Medication Status Instructions Dates Provider Indications Com ments ranolazine 500 mg tablet extended release 12 hr active TAKE 1 TABLET BY MOUTH TWICE DAILY Liz Ventimiglia EMERGENCY DETAIL DRIVER rosuvastatin 20 mg tablet active TAKE 1 TABLET BY MOUTH AT NIGHT Liz Ventimiglia EMERGENCY DETAIL DRIVER Brilinta 90 mg tablet active TAKE 1 TABLET BY MOUTH EVERY DAY [facility] aspirin 81 mg tablet,delayed release (DR/EC) active TAKE 1 TABLET BY MOUTH EVERY DAY Zeferino Gregorio NP metformin 500 mg tablet active Take 1 tablet by mouth once daily [facility] lisinopril 40 mg tablet active Take 1 tablet by mouth once a day [facility] metoprolol succinate 25 mg tablet extended release 24 hr active Take 1 tablet by mouth once a day [facility] simvastatin 20 mg tablet completed Take 1 tablet by mouth every night at bedtime - Zeferino Gregorio NP simvastatin 20 mg tablet completed - [employer]ika [employer] RN lisinopril 40 mg tablet completed - [employer] RN metoprolol succinate 25 mg tablet extended release 24 hr completed - [employer] RN metformin 500 mg tablet completed - Zeferino Gregorio NP SOCIAL HISTORY Date Observation Value Provider personal history of marijuana use no [facility] drug use no [facility] alcohol use, average drinks per day social [facility] alcohol use yes [facility] smoking, year quit 2004 Liz Ve ntimiglia [facility] smoking history, tot al pack/day 5 CIG QD [facility] cigarette use yes Liz Flacomi glia [facility] smoking status Former smoker Liz Flaco miglia [facility] personal history of marijuana use no [facility] drug use no Liz Flacomig hector [facility] alcohol use, average drinks per day social [facility] alcohol use yes [facility] smoking, year quit 2004 Liz Ve ntimiglia [facility] smoking history, tot al pack/day 5 CIG QD Liz Hernandezglia EMERGENCY DETAIL DRIVER cigarette use yes Liz hopson EMERGENCY DETAIL DRIVER smoking status Former smoker Liz bowie [facility] personal history of marijuana use no Zeferino Ballreri REMOTE S[employer]ING RESEARCH SCIENTIST drug use no Zeferino Ballreri [employer]OTE [employer]ING RESEARCH SCIENTIST alcohol use, average drinks per day social Zeferino Ballreri [employer]ING RESEARCH SCIENTIST alcohol use yes Zeferino Ballreri [employer]OTE S[employer]ING RESEARCH SCIENTIST smoking, year quit 2004 Zeferino Plata areri REMOTE SENSING RESEARCH SCIENTIST smoking history, tot al pack/day 5 CIG QD Zeferino Ballreri [employer] S[employer]ING RESEARCH SCIENTIST cigarette use yes Zeferino Ballreri [employer]OTE S[employer]ING RESEARCH SCIENTIST smoking status Former smoker Zeferino Salinas ri [employer]OTE S[employer]ING RESEARCH SCIENTIST smoking, year quit 2004 Rakesh duque MD smoking history, tot al pack/day 5 CIG QD Rakesh Haney MD cigarette use yes Rakesh Haney MD smoking status Former smoker Rakesh Haney MD quit smoking, stage quit Flaquito ribera MD social history E&M S moking History: Jeff richmond is a former smoker. Flaquito Isbell MD social history reviewed E&M revi ewed - no changes required Flaquito Isbell MD smoking history, tot al pack/day 5 CIG QD Shania Pelaez smoking, year quit 2004 Shania quiroz cigarette use yes Shania Pelaez smoking status Former smoker Shania Pelaez FUNCTIONAL STATUS Date Observation Value Provider HRA, CV Assess/Plan, Angina (inactive) Management Plan continue current therapy Liztawanna Hernandezglia [facility] HRA, CV Assess/Plan, Angina (inactive) Management Plan continue current therapy Liz Hernandezglia [facility] HRA, CV Assess/Plan, Angina (inactive) Management Plan continue current therapy Vernicholas Lizzyreri [employer] S[employer]ING RESEARCH SCIENTIST HRA, CV Assess/Plan, Angina (inactive) Management Plan schedule PCI Rakesh Haney MD INSURANCE PROVIDERS Payer name Policy type / Coverage type Jacky red libertarian ID [facility] Medicaid 1 [id number] ADVANCE DIRECTIVES Name Date DISCUSSED - NO DECISION MADE TREATMENT PLAN Date Name Performer [id number],SFlaquito MD [id number],SFlaquito MD [id number],W,missed rx tod ay Flaquito Isbell MD [id number],SFlaquito MD [id number],SFlaquito MD [id number],B, Flaquito avery MD [id number],SFlaquito MD [id number],S,n eg bnp and psa lipase and brain and belly ct and vd s ays he has had two neg cardica caths Flaquito Isbell MD Cardiology: w eight loss encouraged Liztawanna Davies [facility] Cardiology: H is updated medication list for this problem includes: Atorvastatin 20 Mg Tablet (Atorvastatin) ..... Take 1 tablet by mouth daily Rosuvastatin 20 Mg Tablet (Rosuvastatin) ..... Take 1 tablet by mouth at night Liztawanna Davies [facility] Cardiology:not using ANGELA therapy Liztawanna Davies [facility] Cardiology: H is updated medication list for this problem includes: Lisinopril 40 Mg Tablet (Lisinopril) ..... Take 1 tablet by mouth once a day Metoprolol Succinate 25 Mg Tablet Extended Release 24 Hr (Metoprolol succinate) ..... Take 1 tablet by mouth once a day Aspirin 81 Mg Tablet,delayed Release (dr/ec) (Aspirin) ..... Take 1 tablet by mouth every day BP today: 119/74 P rior BP: 113/73 (10/31/2024) [facility] Cardiology:continue medical therapy P saniaient has known CAD with stent to LAD in 09/2024 H e has residual 80% RCA lesion and was hospitalized last week with chest pain H e has been started on ranexa for angina, but he has been limiting his activity d/t concern for recurrent pain W ill plan staged intervention of RCA [facility] Cardiology:weight loss encourage d [facility] Cardiology: H is updated medication list for this problem includes: Lisinopril 40 Mg Tablet (Lisinopril) ..... Take 1 tablet by mouth once a day Aspirin 81 Mg Tablet,delayed Release (dr/ec) (Aspirin) ..... Take 1 tablet by mouth every day Metformin 500 Mg Tablet (Metformin) ..... Take 1 tablet by mouth once daily [facility] Cardiology: H is updated medication list for this problem includes: Rosuvastatin 20 Mg Tablet (Rosuvastatin) ..... Take 1 tablet by mouth at night [facility] Cardiology:BP 113/73 and at goal c ontinue present medication regimen H is updated medication list for this problem includes: Lisinopril 40 Mg Tablet (Lisinopril) ..... Take 1 tablet by mouth once a day Metoprolol Succinate 25 Mg Tablet Extended Release 24 Hr (Metoprolol succinate) ..... Take 1 tablet by mouth once a day Aspirin 81 Mg Tablet,delayed Release (dr/ec) (Aspirin) ..... Take 1 tablet by mouth every day [facility] Cardiology:Patient h as known CAD with stent to LAD in 09/2024 H e has residual 80% RCA lesion and was hospitalized last week with chest pain H e has been started on ranexa for angina, but he has been limiting his activity d/t concern for recurrent pain W ill plan staged intervention of RCA [facility] Cardiology: H is updated medication list for this problem includes: Lisinopril 40 Mg Tablet (Lisinopril) ..... Take 1 tablet by mouth once a day Aspirin 81 Mg Tablet,delayed Release (dr/ec) (Aspirin) ..... Take 1 tablet by mouth every day Metformin 500 Mg Tablet (Metformin) ..... Take 1 tablet by mouth once daily Zeferino Gregorio ANILA Cardiology: H is updated medication list for this problem includes: Simvastatin 20 Mg Tablet (Simvastatin) ..... Take 1 tablet by mouth every night at bedtime Zeferino Salinasefren HIGH Cardiology: B P today: 112/76 P rior BP: 131/90 (09/05/2024) His updated medication list for this problem includes: Lisinopril 40 Mg Tablet (Lisinopril) ..... Take 1 tablet by mouth once a day Metoprolol Succinate 25 Mg Tablet Extended Release 24 Hr (Metoprolol succinate) ..... Take 1 tablet by mouth once a day Aspirin 81 Mg Tablet,delayed Release (dr/ec) (Aspirin) ..... Take 1 tablet by mouth every day Zeferino Salinasefren HIGH Cardiology: s /p C 09/27/24 that showed diffuse 90% of the mid LAD to 80% of the mid RCA. Successful stenting of the LAD with Xience stents. He was noted to have a thrombus which was treated with Aggrastat and balloon angioplasty. N o angina. Continues on Brilinta, ASA, statin and BB. Zeferino Ballporfirio HIGH Cardiology: H is updated medication list for this problem includes: Simvastatin 20 Mg Tablet (Simvastatin) Rakesh Haney MD Cardiology: H is updated medication list for this problem includes: Aspirin 81 Mg Tablet,delayed Release (dr/ec) (Aspirin) ..... Take 1 tablet by mouth once a day Lisinopril 40 Mg Tablet (Lisinopril) Metformin 500 Mg Tablet (Metformin) Rakesh Haney MD Cardiology:Will [facility] k echo and renal artery duplex BP today: 131/90 P rior BP: 148/96 (06/13/2021) His updated medication list for this problem includes: Aspirin 81 Mg Tablet,delayed Release (dr/ec) (Aspirin) ..... Take 1 tablet by mouth once a day Lisinopril 40 Mg Tablet (Lisinopril) Metoprolol Succinate 25 Mg Tablet Extended Release 24 Hr (Metoprolol succinate) Rakesh Haney MD Cardiology:Myoview s can showed reversible ischemia, will schedule L cardiac cath. Had recent hospital admission due to CP. His updated medication list for this problem includes: Aspirin 81 Mg Tablet,delayed Release (dr/ec) (Aspirin) ..... Take 1 tablet by mouth once a day Lisinopril 40 Mg Tablet (Lisinopril) Metoprolol Succinate 25 Mg Tablet Extended Release 24 Hr (Metoprolol succinate) This visit has been a part of the consistent, comprehensive, and ongoing management of the chronic medical condition(s) listed above for the patient. Rakesh Haney MD Cardiology Flaquito Isbell MD Cardiology Flaquito Isbell MD Cardiology:missed rx today Mila Isbell MD Cardiology Flaquito Isbell MD Cardiology Flaquito Isbell MD Cardiology Flaquito Isbell MD Cardiology Flaquito Isbell MD Cardiology:neg bnp a nd psa lipase and brain and belly ct and vd s ays he has had two neg cardica caths Flaquito Isbell MD Date Name PROTHROMBIN TIME WIT H INR LIPID PANEL PROTHROMBIN TIME WIT H INR CBC (H/H, RBC, INDIC ES, WBC, PLT) Lipoprotein (a) LIPID PANEL Microalb/Creatinine Urine, Random HEMOGLOBIN A1c BASIC METABOLIC PANE L W/EGFR Renal Artery Duplex Complete Echo Renal Artery Duplex PROBNP, N TERMINAL CT, Coronary Calcium Score Complete Echo HISTORY OF PROCEDURES Procedure Date Procedure Name Provider Procedure Notes S tatus Complex e/m visit add on Rakesh Haney MD completed JEREMIE Haney MD completed JEREMIE Isbell MD complete d
== END 2025-01-24 08:55 | disposition home or self-care (01) ==
PROVIDERS: PCP Emergency Medicine; Visit Provider Orthopaedic Surgery
DX: S83.241A Other tear of medial meniscus, current injury, right knee, initial encounter (principal); X58.XXXA Exposure to other specified factors, initial encounter; M94.261 Chondromalacia, right knee; R60.9 Edema, unspecified
CPT/HCPCS: 73721